=== PATIENT | female | born 1975 | race Hispanic/Latino ===

== ENCOUNTER 2017-09-17 14:25 | Emergency (ER) | payer MEDICAID, OTHER ==
[2017-09-17 14:39] VITALS: RESP 18; O2SAT 95; BMI 35.7
--- NOTE | 2017-09-17 14:48 | ED PDOC ---
Arrival/HPI - General Chief Complaint: Dental Pain Time Seen by Provider: 09/17/17 14:39 Historian: Patient - History of Present Illness Narrative History of Present Illness (Text): 09/17/17 14:44 42yo female with pmhx of depression and opiod abuse who present with complaint of toothache since this morning. States her dentist recently stopped taking her insurance. She uses dentures. She denies trauma, fever, chills, any other complaint. she did not take any analgesic, per patient. Past Medical History - Provider Review Nursing Documentation Reviewed: Yes - Infectious Disease Hx of Infectious Diseases: None - Tetanus Immunization Tetanus Immunization: Up to Date - Past Medical History Past Medical History: No Previous - Cardiac Hx Hypertension: Yes - Pulmonary Hx Bronchitis: Yes - Neurological HX Cerebrovascular Accident: No Hx Seizures: No - HEENT Hx HEENT Disorder: No - Renal Hx Renal Disorder: No - Endocrine/Metabolic Hx Endocrine Disorders: No - Hematological/Oncological Hx Cancer: No - Integumentary Hx Dermatological Disorder: No - Musculoskeletal/Rheumatological Hx Falls: No - Gastrointestinal Hx Gastrointestinal Disorders: No - Genitourinary/Gynecological Hx Sexually Transmitted Diseases: No - Psychiatric Hx Anxiety: Yes Hx Depression: Yes Hx Substance Use: Yes - Surgical History Hx Section: Yes (x3) Hx Tubal Ligation: Yes Other/Comment: Endometriosis ablation - Anesthesia Hx Anesthesia: Yes Hx Anesthesia Reactions: No Hx Malignant Hyperthermia: No - Suicidal Assessment Feels Threatened In Home Enviroment: No Family/Social History - Physician Review Nursing Documentation Reviewed: Yes Family/Social History: Unknown Family HX Smoking Status: Light Smoker < 10 Cigarettes Daily Hx Alcohol Use: No Hx Substance Use: Yes Substance used: heroin Hx Substance Use Treatment: No Allergies/Home Meds Allergies/Adverse Reactions: Allergies codeine Allergy (Verified 09/17/17 14:29) RASH Review of Systems - Physician Review All systems were reviewed & negative as marked: Yes - Review of Systems Constitutional: Normal Eyes: Normal ENT: Other (Toothache) Respiratory: Normal Cardiovascular: Normal Gastrointestinal: Normal Genitourinary Female: Normal Musculoskeletal: Normal Skin: Normal Neurological: Normal Endocrine: Normal Hemo/Lymphatic: Normal Psychiatric: Normal Physical Exam Vital Signs Reviewed: Yes Vital Signs Temp Pulse Resp BP Pulse Ox 09/17/17 14:30 98.4 F 89 18 139/89 95 Temperature: Afebrile Blood Pressure: Normal Pulse: Regular Respiratory Rate: Normal Appearance: Positive for: Well-Appearing, Non-Toxic, Comfortable Pain Distress: None Mental Status: Positive for: Alert and Oriented X 3 - Systems Exam Head: Present: Atraumatic, Normocephalic Pupils: Present: PERRL Extroacular Muscles: Present: EOMI Conjunctiva: Present: Normal Mouth: Present: Moist Mucous Membranes. No: Normal Teeth (Poor denitition in general. Many missing tooth. The only 2 remaining upper tooth right latearl and left lateral incissor appear infected with gingivitis. No gum swelling.) Neck: Present: Normal Range of Motion Respiratory/Chest: Present: Clear to Auscultation, Good Air Exchange. No: Respiratory Distress, Accessory Muscle Use Cardiovascular: Present: Regular Rate and Rhythm, Normal S1, S2. No: Murmurs Abdomen: No: Tenderness, Distention, Peritoneal Signs Back: Present: Normal Inspection Upper Extremity: Present: Normal Inspection. No: Cyanosis, Edema Lower Extremity: Present: Normal Inspection. No: Edema Neurological: Present: GCS=15, CN II-XII Intact, Speech Normal Skin: Present: Warm, Dry, Normal Color. No: Rashes Psychiatric: Present: Alert, Oriented x 3, Normal Insight, Normal Concentration Disposition/Present on Arrival - Present on Arrival Any Indicators Present on Arrival: No History of DVT/PE: No History of Uncontrolled Diabetes: No Urinary Catheter: No History of Decub. Ulcer: No History Surgical Site Infection Following: None - Disposition Have Diagnosis and Disposition been Completed?: Yes Diagnosis: Dental caries Disposition: HOME/ ROUTINE Disposition Time: 14:55 Patient Plan: Discharge Condition: STABLE Discharge Instructions (ExitCare): Dental Pain Additional Instructions: Follow up with a Dentist Return to ED for any new symptoms Prescriptions: Amoxicillin [Amoxil 500 mg Cap] 500 mg PO TID #21 cap Ibuprofen [Motrin Tab] 600 mg PO Q6 #20 tab Referrals: [facility] [place]] - Follow up with primary
[2017-09-17 16:37] VITALS: BP 132/72; PULSE 72; TEMP 98.3
== END 2017-09-17 15:45 | disposition home or self-care (01) ==
LOC: ED 14:25
DX: K02.9 Dental caries, unspecified (principal)
CPT/HCPCS: 96372; 99283; J1885

== ENCOUNTER 2018-01-02 02:17 | Emergency (ER) | payer MEDICAID ==
[2018-01-02 02:18] VITALS: BMI 35.7
[2018-01-02 02:33] VITALS: RESP 18; TEMP 98.2
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
[2018-01-02 05:30] VITALS: BP 136/82; PULSE 69; O2SAT 99
--- NOTE | 2018-01-02 09:21 | CT ---
Date of service: 01/02/2018 PROCEDURE: CT HEAD WITHOUT CONTRAST. HISTORY: injury COMPARISON: None available. TECHNIQUE: Axial computed tomography images were obtained through the head/brain without intravenous contrast. Radiation dose: Total exam DLP = 846 mGy-cm. This CT exam was performed using one or more of the following dose reduction techniques: Automated exposure control, adjustment of the mA and/or kV according to patient size, and/or use of iterative reconstruction technique. FINDINGS: HEMORRHAGE: No intracranial hemorrhage. BRAIN: No mass effect or edema. No atrophy or chronic microvascular ischemic changes. VENTRICLES: Unremarkable. No hydrocephalus. CALVARIUM: Unremarkable. PARANASAL SINUSES: Unremarkable as visualized. No significant inflammatory changes. MASTOID AIR CELLS: Unremarkable as visualized. No inflammatory changes. OTHER FINDINGS: The report concurs with the preliminary [facility] report IMPRESSION: No acute findings
== END 2018-01-02 05:29 | disposition home or self-care (01) ==
LOC: ED 02:17
DX: S09.90XA Unspecified injury of head, initial encounter (principal); Y08.89XA Assault by other specified means, initial encounter; Y92.9 Unspecified place or not applicable

== ENCOUNTER 2018-01-06 10:28 | Inpatient (IN) | payer MEDICAID, OTHER ==
[2018-01-06 10:42] VITALS: BMI 33.3
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
[2018-01-06 12:15] LABS: ACETAMINOPHEN < 10.0 ug/ml (10.0-20.0); SALICYLATE < 1 mg/dL (2.0-20.0)
[2018-01-06 12:17] LABS: URINE APPEARANCE CLOUDY (CLEAR); URINE BILIRUBIN SMALL (NEGATIVE); URINE COLOR YELLOW (YELLOW); URINE GLUCOSE (UA) NEGATIVE (NEGATIVE)
[2018-01-06 12:18] LABS: URINE BLOOD NEGATIVE (NEGATIVE); URINE LEUKOCYTE ESTERASE TRACE Leu/uL (NEGATIVE); URINE PROTEIN 30 mg/dL (<30 mg/dL)
[2018-01-06 12:29] LABS: ALB/GLOB RATIO 1.2 (1.1-1.8); ALT/SGPT 28 U/L (7-56); AST/SGOT 35 U/L (14-36); BLOOD UREA NITROGEN 9 mg/dL (7-21); CALCIUM 9.1 mg/dL (8.4-10.5); GFR NON-AFRICAN AMERICAN > 60
[2018-01-06] MEDS ORDERED: Potassium Chloride 20 mEq ER Tab PO STA (12:34)
[2018-01-06 12:37] LABS: PHENCYCLIDINE, UR NEGATIVE (NEGATIVE); URINE BACTERIA MOD (NEG); URINE RBC 0 - 2 /hpf (0-2)
[2018-01-06 12:40] LABS: BASO # 0.02 K/mm3 (0.0-2.0); BASO % 0.3 % (0.0-3.0); EOS % 0.3 % (1.5-5.0); GRAN # 6.14 (1.4-6.5); GRAN % 80.4 % (50.0-68.0); HEMOGLOBIN 13.9 g/dL (12.0-16.0); LYMPH # 1.1 (1.2-3.4); LYMPH % 14.8 % (22.0-35.0); MEAN CELL VOLUME 85.8 fl (80.0-105.0); MEAN CORPUSCULAR HEMOGLOBIN 30.3 pg (25.0-35.0); MEAN CORPUSCULAR HGB CONC 35.3 g/dl (31.0-37.0); MEAN PLATELET VOLUME 10.3 fl (7.0-11.0); MONO # 0.3 (0.1-0.6); MONO % 4.2 % (1.0-6.0); RBC 4.59 10^6/uL (3.5-6.1); RED CELL DISTRIBUTION WIDTH 13.1 % (11.5-14.5); WHITE BLOOD COUNT 7.6 10^3/ul (4.5-11.0)
[2018-01-06 12:40] LABS: BARBITURATES, UR NEGATIVE (NEGATIVE); BENZODIAZEPINES, UR POSITIVE (NEGATIVE); OPIATES, UR POSITIVE (NEGATIVE)
[2018-01-06 13:00] LABS: TROPONIN I < 0.01 ng/mL
[2018-01-06 13:04] LABS: CK-MB 3.7 ng/mL (0.0-3.6)
[2018-01-06] MEDS ORDERED: cefTRIAXone 1 gm 1 GM/100 ML BAG IVPB STA (13:08)
--- NOTE | 2018-01-06 13:20 | RAD ---
Date of service: 01/06/2018 HISTORY: pes COMPARISON: No prior. FINDINGS: LUNGS: No active pulmonary disease. PLEURA: No significant pleural effusion identified, no pneumothorax apparent. CARDIOVASCULAR: Normal. OSSEOUS STRUCTURES: No significant abnormalities. VISUALIZED UPPER ABDOMEN: Normal. OTHER FINDINGS: None. IMPRESSION: No active disease.
[2018-01-06] MEDS ORDERED: Albuterol-Ipratrop 3 mg / 0.5 (3 ml) UD IH SCH (13:30)
--- NOTE | 2018-01-06 13:43 | CP.PCM.HP ---
History of Present Illness - History of Present Illness History of Present Illness: PGY-2 H&P medicine note for Dr Feldman Mrs Scott is a 42 year old female with a PMHx of asthma, bipolar disorder, opioid use disorder on methadone, tobacco abuse, who presents to our ED with suicidal ideations and found to have a potassium of 2.4. Her recent stressors include being kicked out of her home by her significant other, who also recently enacted a restraining order against her. She's been living in a homeless care home and states that also a big stressor in her life. She's on a methadone program which has been tapered down to 5mg daily - she states this is not covering her withdrawal symptoms which is forcing her to use heroin (via snorting) - her last heroin use was this morning at 8am. PMHx: asthma, bipolar disorder, opioid use disorder on methadone, tobacco abuse PSHx: Home Meds: hydrochlorothiazide 25mg po qd, amlodipine 10mg po qd, seroquel 200mg po hs, divalproex 250mg po bid, citalopram 10mg po hs Allergies: Codeine - rash FamHx: mother - heart problems SocialHx: 20 pack year tobacco hx - current smoker, denies alcohol, 5-10 bags of heroin use via snort for past 4 years on methadone program, marijuana use, has 3 kids who live with boyfriends mother, [facility] Present on Admission - Present on Admission Any Indicators Present on Admission: No Review of Systems - Constitutional Constitutional: absent: Chills, Fever - EENT Eyes: absent: Blurred Vision Nose/Mouth/Throat: absent: Epistaxis, Nasal Congestion - Cardiovascular Cardiovascular: absent: Chest Pain - Respiratory Respiratory: absent: Cough, Hemoptysis - Gastrointestinal Gastrointestinal: absent: Abdominal Pain - Genitourinary Genitourinary: absent: Dysuria, Flank Pain, Hematuria, Pyuria, Urinary Frequency, Urinary Hesitance, Freq UTI - Musculoskeletal Musculoskeletal: Back Pain - Integumentary Integumentary: absent: Bleeding Lesions - Hematologic/Lymphatic Hematologic: absent: Easy Bleeding Past Patient History - Infectious Disease Hx of Infectious Diseases: None - Tetanus Immunizations Tetanus Immunization: Up to Date - Past Medical History & Family History Past Medical History?: Yes - Past Social History Smoking Status: Light Smoker < 10 Cigarettes Daily - CARDIAC Hx Hypertension: Yes - PULMONARY Hx Bronchitis: Yes - NEUROLOGICAL Hx Seizures: No - HEENT Hx HEENT Problems: No - RENAL Hx Chronic Kidney Disease: No - ENDOCRINE/METABOLIC Hx Endocrine Disorders: No - HEMATOLOGICAL/ONCOLOGICAL Hx Cancer: No - INTEGUMENTARY Hx Dermatological Problems: No - MUSCULOSKELETAL/RHEUMATOLOGICAL Hx Falls: No - GASTROINTESTINAL Hx Gastrointestinal Disorders: No - GENITOURINARY/GYNECOLOGICAL Hx Sexually Transmitted Disorders: No - PSYCHIATRIC Hx Anxiety: Yes Hx Depression: Yes Hx Substance Use: Yes - SURGICAL HISTORY Hx Section: Yes (x3) Hx Tubal Ligation: Yes Other/Comment: Endometriosis ablation - ANESTHESIA Hx Anesthesia: Yes Hx Anesthesia Reactions: No Hx Malignant Hyperthermia: No Meds Allergies/Adverse Reactions: Allergies Allergy/AdvReac Type Severity Reaction Status Date / Time codeine Allergy RASH Verified 09/17/17 14:29 Physical Exam - Constitutional Appears: In Acute Distress, Other (anxious) - Head Exam Head Exam: ATRAUMATIC, NORMAL INSPECTION - Eye Exam Eye Exam: EOMI, Normal appearance, PERRL - ENT Exam ENT Exam: Mucous Membranes Moist - Respiratory Exam Respiratory Exam: Clear to Auscultation Bilateral, NORMAL BREATHING PATTERN. absent: Rales, Rhonchi, Wheezes - Cardiovascular Exam Cardiovascular Exam: REGULAR RHYTHM, +S1, +S2. absent: Tachycardia, JVD, Systolic Murmur - GI/Abdominal Exam GI & Abdominal Exam: Normal Bowel Sounds, Soft. absent: Distended, Firm, Guarding, Hernia, Tenderness - Extremities Exam Extremities exam: Positive for: calf tenderness, normal capillary refill, normal inspection, tenderness, pedal pulses present. Negative for: joint swelling, pedal edema - Back Exam Back exam: NORMAL INSPECTION - Neurological Exam Neurological exam: Alert, CN II-XII Intact, Oriented x3 - Psychiatric Exam Psychiatric exam: Anxious - Skin Skin Exam: Intact, Normal Color, Warm Results - Vital Signs Recent Vital Signs: Last Vital Signs Temp 98.3 F 01/06/18 10:41 Pulse 90 01/06/18 10:41 Resp 18 01/06/18 10:41 BP 147/89 01/06/18 10:41 Pulse Ox 97 01/06/18 10:41 - Labs Result Diagrams: 01/06/18 11:56 01/06/18 11:56 Labs: Laboratory Results - last 24 hr 1001/06/18 01/06/18 11:56 11:56 11:56 WBC 7.6 RBC 4.59 Hgb 13.9 Hct 39.4 MCV 85.8 MCH 30.3 MCHC 35.3 RDW 13.1 Plt Count 190 MPV 10.3 Gran % 80.4 H Lymph % (Auto) 14.8 L [place] % (Auto) 4.2 Eos % (Auto) 0.3 L Baso % (Auto) 0.3 Gran # 6.14 Lymph # (Auto) 1.1 L [place] # (Auto) 0.3 Eos # (Auto) 0.0 Baso # (Auto) 0.02 Sodium 140 Potassium 2.4 L* D Chloride 101 Carbon Dioxide 30 Anion Gap 11 BUN 9 Creatinine 0.6 L Est GFR ( Amer) > 60 Est GFR (Non-Af Amer) > 60 Random Glucose 168 H Calcium 9.1 Magnesium Total Bilirubin 0.5 AST 35 ALT 28 Alkaline Phosphatase 94 Lactate Dehydrogenase Total Creatine Kinase CK-MB (CK-2) CK-MB (CK-2) % Troponin I Total Protein 7.3 Albumin 4.0 Globulin 3.2 Albumin/Globulin Ratio 1.2 Urine Color Urine Appearance Urine pH Ur Specific [place] Urine Protein Urine Glucose (UA) Urine Ketones Urine Blood Urine Nitrate Urine Bilirubin Urine Urobilinogen Ur Leukocyte Esterase Urine RBC Urine WBC Ur Epithelial Cells Urine Bacteria Salicylates < 1 L Urine Opiates Screen Urine Methadone Screen Acetaminophen < 10.0 L Ur Barbiturates Screen Ur Phencyclidine Scrn Ur Amphetamines Screen U Benzodiazepines Scrn U Oth Cocaine Metabols U Cannabinoids Screen Alcohol, Quantitative 01/06/18 01/06/18 01/06/18 11:56 12:00 12:14 WBC RBC Hgb Hct MCV MCH MCHC RDW Plt Count MPV Gran % Lymph % (Auto) [place] % (Auto) Eos % (Auto) Baso % (Auto) Gran # Lymph # (Auto) [place] # (Auto) Eos # (Auto) Baso # (Auto) Sodium Potassium Chloride Carbon Dioxide Anion Gap BUN Creatinine Est GFR ( Amer) Est GFR (Non-Af Amer) Random Glucose Calcium Magnesium 2.0 Total Bilirubin AST ALT Alkaline Phosphatase Lactate Dehydrogenase 439 Total Creatine Kinase 254 H CK-MB (CK-2) 3.7 H CK-MB (CK-2) % Cancelled Troponin I < 0.01 Total Protein Albumin Globulin Albumin/Globulin Ratio Urine Color Yellow Urine Appearance Cloudy Urine pH 6.0 Ur Specific [place] 1.025 Urine Protein 30 H Urine Glucose (UA) Negative Urine Ketones Trace H Urine Blood Negative Urine Nitrate Positive H Urine Bilirubin Small H Urine Urobilinogen 1.0 H Ur Leukocyte Esterase Trace H Urine RBC 0 - 2 Urine WBC 1 - 3 Ur Epithelial Cells 10 - 12 Urine Bacteria Mod Salicylates Urine Opiates Screen Urine Methadone Screen Acetaminophen Ur Barbiturates Screen Ur Phencyclidine Scrn Ur Amphetamines Screen U Benzodiazepines Scrn U Oth Cocaine Metabols U Cannabinoids Screen Alcohol, Quantitative < 10 01/06/18 12:14 WBC RBC Hgb Hct MCV MCH MCHC RDW Plt Count MPV Gran % Lymph % (Auto) [place] % (Auto) Eos % (Auto) Baso % (Auto) Gran # Lymph # (Auto) [place] # (Auto) Eos # (Auto) Baso # (Auto) Sodium Potassium Chloride Carbon Dioxide Anion Gap BUN Creatinine Est GFR ( Amer) Est GFR (Non-Af Amer) Random Glucose Calcium Magnesium Total Bilirubin AST ALT Alkaline Phosphatase Lactate Dehydrogenase Total Creatine Kinase CK-MB (CK-2) CK-MB (CK-2) % Troponin I Total Protein Albumin Globulin Albumin/Globulin Ratio Urine Color Urine Appearance Urine pH Ur Specific [place] Urine Protein Urine Glucose (UA) Urine Ketones Urine Blood Urine Nitrate Urine Bilirubin Urine Urobilinogen Ur Leukocyte Esterase Urine RBC Urine WBC Ur Epithelial Cells Urine Bacteria Salicylates Urine Opiates Screen Positive H Urine Methadone Screen Positive H Acetaminophen Ur Barbiturates Screen Negative Ur Phencyclidine Scrn Negative Ur Amphetamines Screen Negative U Benzodiazepines Scrn Positive H U Oth Cocaine Metabols Negative U Cannabinoids Screen Positive H Alcohol, Quantitative Assessment & Plan - Assessment and Plan (Free Text) Plan: Mrs Scott is a 42 year old female with a PMHx of asthma, bipolar disorder, opioid use disorder on methadone, tobacco abuse, who presents to our ED with suicidal ideations and found to have a potassium of 2.4: Hypokalemia -potassium 2.4 on admission -likely due to poor unbalanced diet as patient living in homeless care home; denied vomiting/diarrhea -40meq po given in ED, plan on giving 20meq via IV and another 40meq po x2 Suicidal Ideations -recent stressors + medications non-compliance (patient stated she hasn't taken her citalopram for the last 1 month) -consult psychiatry, Dr Alfaro -1:1 sitter -xanax 0.25mg po tid as patient very anxious on exam Bipolar Disorder Depressed Severe w/o Psychotic Features -patient stated she hasn't taken her citalopram for the last 1 month -continue home quetiapine 10mg po qd -continue home divalproex 250mg po bid -continue home citalopram 10mg po hs Opioid Use Disorder, Severe, Dependence -consult psychiatry, Dr Alfaro -self reported use of heroin 10 bags/day - last use this morning -[facility]) -continue methadone 5mg po bid and taper to po qd -start medications for potential opioid withdrawal symptoms - zofran for nausea, ibuprofen for pain, clonidine for withdrawal symptoms Hx of Asthma -duoneb 3ml inh q6h prn for dyspnea HTN -BP well controlled -hold home hydrochlorothiazide 25mg po qd as has side effect of hypokalemia -hold home amlodipine 10mg po qd as this can peripheral edema (patient complaining of increased LE swelling) -start lisinopril 10mg po qd Elevated Glucose -glucose 168 on admission -F/U HgbA1c UTI -UA positive for nitrates and leukocyte esterase however patient is asymptomatic -Rocephin 1g ivpb given in ED -F/U urine Cx -No Abx indicated at this time Tobacco Abuse -consult psychiatry, Dr Alfaro -nicotine patch 14mg td qd LE Pain -likely 2/2 heroin withdrawal -venous doppler, f/u PPX -SCDs contraindicated 2/2 to LE pain -lovenox 40mg sc qd -heart healthy diet
[2018-01-06] MEDS ORDERED: Albuterol-Ipratrop 3 mg / 0.5 (3 ml) UD IH PRN (13:48)
[2018-01-06] MEDS ORDERED: Potassium Chloride 20 mEq ER Tab PO ONE ×2 (15:00→18:00)
--- NOTE | 2018-01-06 16:20 | CARD ---
APPROVED REPORT Date of service: 01/06/2018 EKG Measurement Heart [id number] <Conclusion> Normal sinus rhythm Septal infarct, age undetermined Inferior infarct, age undetermined Abnormal ECG
[2018-01-06] MEDS: Divalproex 250 mg DR (BID formulation) PO SCH (21:33)
[2018-01-07 06:30] LABS: BASO # 0.03 K/mm3 (0.0-2.0); BASO % 0.6 % (0.0-3.0); EOS # 0.2 (0.0-0.7); EOS % 3.9 % (1.5-5.0); GRAN # 2.52 (1.4-6.5); LYMPH % 37.3 % (22.0-35.0); MEAN CELL VOLUME 88.3 fl (80.0-105.0); MEAN CORPUSCULAR HEMOGLOBIN 29.7 pg (25.0-35.0); MEAN CORPUSCULAR HGB CONC 33.7 g/dl (31.0-37.0); MEAN PLATELET VOLUME 10.5 fl (7.0-11.0); MONO # 0.6 (0.1-0.6); MONO % 11.2 % (1.0-6.0); RBC 4.71 10^6/uL (3.5-6.1); RED CELL DISTRIBUTION WIDTH 13.4 % (11.5-14.5); WHITE BLOOD COUNT 5.4 10^3/ul (4.5-11.0)
[2018-01-07 07:23] LABS: ALB/GLOB RATIO 1.1 (1.1-1.8); ALBUMIN 3.6 g/dL (3.0-4.8); ALT/SGPT 21 U/L (7-56); AST/SGOT 28 U/L (14-36); BLOOD UREA NITROGEN 10 mg/dL (7-21); CALCIUM 8.8 mg/dL (8.4-10.5); GFR NON-AFRICAN AMERICAN > 60
[2018-01-07] MEDS: Multivitamin With Minerals Tab PO SCH (09:15)
[2018-01-07] MEDS: Divalproex 250 mg DR (BID formulation) PO SCH ×2 (09:15→21:22)
[2018-01-07] MEDS: Enoxaparin 40 mg Syringe SC SCH (09:17)
[2018-01-07] MEDS ORDERED: Potassium Chloride 20 mEq ER Tab PO ONE (10:47)
--- NOTE | 2018-01-07 15:12 | US ---
HISTORY: Leg pain and swelling. Evaluate for DVT PHYSICIAN(S): Nader Scott MD. TECHNIQUE: Duplex sonography and color-flow Doppler with graded compression were used to evaluate the deep venous systems of both lower extremities. FINDINGS: The visualized deep venous systems of both lower extremities are sonographically normal and compressible. Normal wave forms and augmentation are seen. There is no sonographic evidence for deep venous thrombosis in the visualized segments of both lower extremities. IMPRESSION: No sonographic evidence for deep venous thrombosis in the visualized segments of both lower extremities.
--- NOTE | 2018-01-08 05:49 | CP.PCM.PN ---
<Cristina Malcolm - Last Filed: 01/08/18 16:29> Subjective - Date & Time of Evaluation Date of Evaluation: 01/07/18 Time of Evaluation: 10:00 - Subjective Subjective: HISTORY & PHYSICAL NOTE FOR DR. LEIGHTON Malcolm D.O PGY-1 Pt seen and examined at bedside. No acute complains. No nursing events over night. Denies suicidal ideation, homicidal ideations, thoughts to harm others. Denies fevers, chills, headache, dizziness, nausea, vomiting, chest pain, palpitations, SOB, constipation, diarrhea, dysuria. Objective - Vital Signs/Intake and Output Vital Signs (last 24 hours): Temp Pulse Resp BP Pulse Ox 98.2 F 65 20 111/66 98 01/08/18 00:01 01/08/18 02:00 01/08/18 00:01 01/08/18 00:01 01/08/18 00:01 Intake and Output: 01/07/18 01/08/18 18:59 06:59 Intake Total 240 Output Total 0 Balance 240 - Medications Medications: Current Medications Albuterol/Ipratropium (Duoneb 3 Mg/0.5 Mg (3 Ml) Ud) 3 ml IH Q6H PRN PRN Reason: Shortness of Breath Last Admin: 01/06/18 14:13 Dose: 3 ml Alprazolam (Xanax) 0.25 mg PO TID SHERRY; Protocol Stop: 01/13/18 18:01 Last Admin: 01/07/18 18:41 Dose: 0.25 mg Citalopram Hydrobromide (Celexa) 10 mg PO HS COUNT [facility]CLUDES [facility] Last Admin: 01/07/18 21:23 Dose: 10 mg Clonidine HCl (Catapres) 0.1 mg PO Q4H PRN PRN Reason: Symptoms of Opioid Withdrawal Cyanocobalamin (Vitamin B12 100 Mcg Tab) 100 mcg PO DAILY COUNT INCLUDES [facility] Last Admin: 01/07/18 09:16 Dose: 100 mcg Divalproex Sodium (Depakote Dr (*Bid*)) 250 mg PO Q12 [facility]; Protocol Last Admin: 01/07/18 21:22 Dose: 250 mg Enoxaparin Sodium (Lovenox) 40 mg SC DAILY [facility]; Protocol Last Admin: 01/07/18 09:17 Dose: 40 mg Folic Acid (Folic Acid) 1 mg PO DAILY COUNT [facility]CLUDES [facility] Last Admin: 01/07/18 09:16 Dose: 1 mg Ibuprofen (Motrin Tab) 200 mg PO Q8H PRN PRN Reason: Pain, severe (8-10) Lisinopril (Zestril) 10 mg PO DAILY COUNT [facility]CLUDES [facility] Last Admin: 01/07/18 09:16 Dose: 10 mg Methadone HCl (Methadone) 5 mg PO BID COUNT [facility]CLUDES [facility] Last Admin: 01/07/18 18:40 Dose: 5 mg Multivitamins/Minerals (Therapeutic-M Tab) 1 tab PO 0800 COUNT [facility]CLUDES [facility] Last Admin: 01/07/18 09:15 Dose: 1 tab Nicotine (Nicoderm Cq) 1 patch TD DAILY COUNT [facility]CLUDES [facility] Last Admin: 01/07/18 09:17 Dose: 1 patch Ondansetron HCl (Zofran Inj) 4 mg IVP Q6H PRN PRN Reason: Nausea/Vomiting Quetiapine Fumarate (Seroquel) 200 mg PO HS PRN PRN Reason: Insomnia Last Admin: 01/07/18 21:31 Dose: 200 mg - Labs Labs: 01/07/18 06:10 01/07/18 06:10 - Constitutional Appears: Well, Non-toxic, No Acute Distress - Head Exam Head Exam: NORMAL INSPECTION, NORMOCEPHALIC - Eye Exam Eye Exam: EOMI, Normal appearance - ENT Exam ENT Exam: Mucous Membranes Moist, Normal Exam - Neck Exam Neck Exam: Normal Inspection - Respiratory Exam Respiratory Exam: Clear to Ausculation Bilateral, NORMAL BREATHING PATTERN - Cardiovascular Exam Cardiovascular Exam: REGULAR RHYTHM, +S1, +S2 - GI/Abdominal Exam GI & Abdominal Exam: Soft, Normal Bowel Sounds - Extremities Exam Extremities Exam: Normal Inspection. absent: Calf Tenderness - Back Exam Back Exam: NORMAL INSPECTION - Neurological Exam Neurological Exam: Alert, Awake, Oriented x3 - Psychiatric Exam Psychiatric exam: Normal Affect, Normal Mood - Skin Skin Exam: Dry, Intact, Warm Assessment and Plan - Assessment and Plan (Free Text) Assessment: Mrs Scott is a 42 year old female with a PMHx of asthma, bipolar disorder, opioid use disorder on methadone, tobacco abuse, who presents to our ED with whiting icidal ideations and found to have a potassium of 2.4. Pt potassium repleted with po KCl. Psychiatry consulted for recommendations Plan: Hypokalemia -potassium 2.4 on admission -likely due to poor unbalanced diet as patient living in homeless senior living; denied vomiting/diarrhea -40meq po given in ED. Give 20meq po Suicidal Ideations -recent stressors + medications non-compliance (patient stated she hasn't taken her citalopram for the last 1 month) -consult psychiatry, Dr Alfaro -1:1 sitter -xanax 0.25mg po tid as patient very anxious on exam Bipolar Disorder Depressed Severe w/o Psychotic Features -patient stated she hasn't taken her citalopram for the last 1 month -continue home quetiapine 10mg po qd -continue home divalproex 250mg po bid -continue home citalopram 10mg po hs Opioid Use Disorder, Severe, Dependence -consult psychiatry, Dr Alfaro -self reported use of heroin 10 bags/day - last use this morning -[facility]) -continue methadone 5mg po bid and taper to po qd -start medications for potential opioid withdrawal symptoms -start zofran for nausea, ibuprofen for pain, clonidine for withdrawal symptoms Hx of Asthma -start duoneb 3ml inh q6h prn for dyspnea HTN -BP well controlled -hold home hydrochlorothiazide 25mg po qd as has side effect of hypokalemia -hold home amlodipine 10mg po qd as this can peripheral edema (patient complaining of increased LE swelling) -start lisinopril 10mg po qd Elevated Glucose -glucose 168 on admission -F/U HgbA1c UTI -UA positive for nitrates and leukocyte esterase however patient is asymptomatic -Rocephin 1g ivpb given in ED -N-o Abx indicated at this time Tobacco Abuse -consult psychiatry, Dr Alfaro -nicotine patch 14mg td qd LE Pain -likely 2/2 heroin withdrawal -venous doppler, f/u PPX -SCDs contraindicated 2/2 to LE pain -lovenox 40mg sc qd -heart healthy diet <Lennie Valladares R - Last Filed: 01/09/18 17:03> Objective - Vital Signs/Intake and Output Vital Signs (last 24 hours): Temp Pulse Resp BP Pulse Ox 98.2 F 61 18 135/91 H 97 01/08/18 18:15 01/08/18 18:15 01/08/18 18:15 01/08/18 18:15 01/08/18 06:00 - Labs Labs: 01/08/18 06:00 01/08/18 06:00 Attending/Attestation - Attestation I have personally seen and examined this patient.: Yes I have fully participated in the care of the patient.: Yes I have reviewed all pertinent clinical information, including history, physical exam and plan: Yes Notes (Text): Patient seen and examined by me with resident at 10:40 AM on 01/07/18 with resident. Case including discharge plan discussed with resident. Agree with above with following additions/corrections. Patient is a 42-year-old female with past medical history significant for asthma, bipolar disorder, opioid abuse on methadone, and tobacco use the presented to the emergency room with suicidal ideations. Patient states she is feeling okay. Patient states she feels like she is withdrawing from heroin. Complains of body aches and diarrhea. She denies any headaches, dizziness, lightheadedness, or change in vision. No chest pain or palpitations. No shortness of breath. No nausea, vomiting, or abdominal pain. No fevers or chills. No dysuria. Physical exam: Gen: Awake and alert sitting and lying in bed in no acute distress HEENT: Normocephalic, atraumatic. Extraocular muscles intact, pupils equal reactive. No scleral icterus. Oropharynx is pink and moist. No pharyngeal erythema or exudate appreciated. Neck is supple. Cardiovascular: Normal rhythm. Normal S1, S2. No murmurs, rubs, or gallops appreciated Pulmonary: Normal respiratory effort. No rhonchi, rales, or wheezing appreciated. Gastrointestinal: Soft, nontender. Nondistended. Positive bowel sounds all 4 quadrants, no guarding. Musculoskeletal: Normal range of motion all extremities. No edema appreciated. No calf tenderness. Central nervous system: AAO x 3. CN2-12 grossly intact. Dermatologic: Skin warm and dry. Assessment and plan: Patient is a 42-year-old female with past medical history significant for asthma, bipolar disorder, opioid abuse on methadone, and tobacco use the presented to the emergency room with suicidal ideations. 1. Hypokalemia. Improved. Continue to replace potassium as needed. Home hydrochlorothiazide held. Continue to monitor. . 2. Suicidal ideations. Patient is on one-to-one. Psychiatrist consulted, pending recommendations. 3. Bipolar disorder. Anxiety. Depression. Continue Xanax 3 times a day. Continue Depakote every 12 hours. Continue Celexa. Continue Seroquel. Psychiatry consulted, pending recommendations. 4. Opioid abuse. Patient she was taking methadone. Psychiatrist consulted, pending recommendations. 5. Abnormal urinalysis. Patient asymptomatic. No antibiotic treatment indicated. Urine culture with no growth. 6. Left lower extremity pain. Venous Doppler negative for DVT. Continue to monitor. 7. Tobacco abuse. Patient counseled at length on cessation. Nicotine patch. 8. Elevated glucose. Resolved. Hemoglobin A1c 5.6. 9. History of asthma. Not in any acute exacerbation. Continue nebulizer frances tments as needed. Case was discussed in detail with the patient regarding current diagnosis and treatment plan.
--- NOTE | 2018-01-08 05:52 | CP.PCM.PN ---
Subjective - Date & Time of Evaluation Date of Evaluation: 01/08/18 Time of Evaluation: 05:52 - Subjective Subjective: HISTORY & PHYSICAL PROGRESS NOTE FOR DR. LEIGHTON Malcolm D.O. PGY-1 Objective - Vital Signs/Intake and Output Vital Signs (last 24 hours): Temp Pulse Resp BP Pulse Ox 98.2 F 65 20 111/66 98 01/08/18 00:01 01/08/18 02:00 01/08/18 00:01 01/08/18 00:01 01/08/18 00:01 Intake and Output: 01/07/18 01/08/18 18:59 06:59 Intake Total 240 Output Total 0 Balance 240 - Medications Medications: Current Medications Albuterol/Ipratropium (Duoneb 3 Mg/0.5 Mg (3 Ml) Ud) 3 ml IH Q6H PRN PRN Reason: Shortness of Breath Last Admin: 01/06/18 14:13 Dose: 3 ml Alprazolam (Xanax) 0.25 mg PO TID [facility]; Protocol Stop: 01/13/18 18:01 Last Admin: 01/07/18 18:41 Dose: 0.25 mg Citalopram Hydrobromide (Celexa) 10 mg PO HS [facility] Last Admin: 01/07/18 21:23 Dose: 10 mg Clonidine HCl (Catapres) 0.1 mg PO Q4H PRN PRN Reason: Symptoms of Opioid Withdrawal Cyanocobalamin (Vitamin B12 100 Mcg Tab) 100 mcg PO DAILY [facility] Last Admin: 01/07/18 09:16 Dose: 100 mcg Divalproex Sodium (Depakote Dr (*Bid*)) 250 mg PO Q12 [facility]; Protocol Last Admin: 01/07/18 21:22 Dose: 250 mg Enoxaparin Sodium (Lovenox) 40 mg SC DAILY [facility]; Protocol Last Admin: 01/07/18 09:17 Dose: 40 mg Folic Acid (Folic Acid) 1 mg PO DAILY [facility] Last Admin: 01/07/18 09:16 Dose: 1 mg Ibuprofen (Motrin Tab) 200 mg PO Q8H PRN PRN Reason: Pain, severe (8-10) Lisinopril (Zestril) 10 mg PO DAILY [facility] Last Admin: 01/07/18 09:16 Dose: 10 mg Methadone HCl (Methadone) 5 mg PO BID [facility] Last Admin: 01/07/18 18:40 Dose: 5 mg Multivitamins/Minerals (Therapeutic-M Tab) 1 tab PO 0800 [facility] Last Admin: 01/07/18 09:15 Dose: 1 tab Nicotine (Nicoderm Cq) 1 patch TD DAILY [facility] Last Admin: 01/07/18 09:17 Dose: 1 patch Ondansetron HCl (Zofran Inj) 4 mg IVP Q6H PRN PRN Reason: Nausea/Vomiting Quetiapine Fumarate (Seroquel) 200 mg PO HS PRN PRN Reason: Insomnia Last Admin: 01/07/18 21:31 Dose: 200 mg - Labs Labs: 01/07/18 06:10 01/07/18 06:10
[2018-01-08] MEDS ORDERED: Potassium Chloride 20 mEq ER Tab PO STA (05:53)
[2018-01-08 06:15] VITALS: O2SAT 97
[2018-01-08 07:09] LABS: ALB/GLOB RATIO 1.1 (1.1-1.8); ALBUMIN 3.4 g/dL (3.0-4.8); ALT/SGPT 22 U/L (7-56); AST/SGOT 24 U/L (14-36); BLOOD UREA NITROGEN 10 mg/dL (7-21); CALCIUM 8.8 mg/dL (8.4-10.5); GFR NON-AFRICAN AMERICAN > 60
[2018-01-08 07:13] LABS: BASO # 0.01 K/mm3 (0.0-2.0); BASO % 0.2 % (0.0-3.0); EOS # 0.1 (0.0-0.7); EOS % 2.6 % (1.5-5.0); GRAN # 2.38 (1.4-6.5); GRAN % 47.4 % (50.0-68.0); LYMPH # 2.1 (1.2-3.4); LYMPH % 41.2 % (22.0-35.0); MEAN CELL VOLUME 87.9 fl (80.0-105.0); MEAN CORPUSCULAR HEMOGLOBIN 29.7 pg (25.0-35.0); MEAN CORPUSCULAR HGB CONC 33.7 g/dl (31.0-37.0); MEAN PLATELET VOLUME 10.6 fl (7.0-11.0); MONO # 0.4 (0.1-0.6); MONO % 8.6 % (1.0-6.0); RBC 4.72 10^6/uL (3.5-6.1); RED CELL DISTRIBUTION WIDTH 13.1 % (11.5-14.5)
[2018-01-08] MEDS: Divalproex 250 mg DR (BID formulation) PO SCH (09:41)
[2018-01-08] MEDS: Enoxaparin 40 mg Syringe SC SCH (09:41)
[2018-01-08] MEDS: Multivitamin With Minerals Tab PO SCH (09:42)
--- NOTE | 2018-01-08 16:30 | CP.PCM.DIS ---
Provider - Provider Date of Admission: 01/06/18 13:15 Attending physician: Lennie Valladares DO Consults: Psychiatry: Dr. Cook Time Spent in preparation of Discharge (in minutes): 45 Hospital Course - Lab Results Lab Results: Micro Results 01/06/18 12:00 Urine,Clean Catch Urine Culture - Final No Growth (<1,000 CFU/ML) Most Recent Lab Values WBC 5.0 10^3/ul (4.5-11.0) 01/08/18 06:00 RBC 4.72 10^6/uL (3.5-6.1) 01/08/18 06:00 Hgb 14.0 g/dL (12.0-16.0) 01/08/18 06:00 Hct 41.5 % (36.0-48.0) 01/08/18 06:00 MCV 87.9 fl (80.0-105.0) 01/08/18 06:00 MCH 29.7 pg (25.0-35.0) 01/08/18 06:00 MCHC 33.7 g/dl (31.0-37.0) 01/08/18 06:00 RDW 13.1 % (11.5-14.5) 01/08/18 06:00 Plt Count 188 10^3/uL (120.0-450.0) 01/08/18 06:00 MPV 10.6 fl (7.0-11.0) 01/08/18 06:00 Gran % 47.4 % (50.0-68.0) L 01/08/18 06:00 Lymph % (Auto) 41.2 % (22.0-35.0) H 01/08/18 06:00 [place] % (Auto) 8.6 % (1.0-6.0) H 01/08/18 06:00 Eos % (Auto) 2.6 % (1.5-5.0) 01/08/18 06:00 Baso % (Auto) 0.2 % (0.0-3.0) 01/08/18 06:00 Gran # 2.38 (1.4-6.5) 01/08/18 06:00 Lymph # (Auto) 2.1 (1.2-3.4) 01/08/18 06:00 [place] # (Auto) 0.4 (0.1-0.6) 01/08/18 06:00 Eos # (Auto) 0.1 (0.0-0.7) 01/08/18 06:00 Baso # (Auto) 0.01 K/mm3 (0.0-2.0) 01/08/18 06:00 Sodium 143 mmol/L (132-148) 01/08/18 06:00 Potassium 3.7 mmol/L (3.6-5.0) 01/08/18 06:00 Chloride 109 mmol/L (98-107) H 01/08/18 06:00 Carbon Dioxide 26 mmol/L (21-33) 01/08/18 06:00 Anion Gap 12 (10-20) 01/08/18 06:00 BUN 10 mg/dL (7-21) 01/08/18 06:00 Creatinine 0.6 mg/dl (0.7-1.2) L 01/08/18 06:00 Est GFR ( Amer) > 60 01/08/18 06:00 Est GFR (Non-Af Amer) > 60 01/08/18 06:00 Random Glucose 81 mg/dL (70-110) 01/08/18 06:00 Hemoglobin A1c 5.6 % (4.2-6.5) 01/07/18 06:10 Calcium 8.8 mg/dL (8.4-10.5) 01/08/18 06:00 Magnesium 2.0 mg/dL (1.7-2.2) 01/06/18 12:00 Total Bilirubin 0.4 mg/dL (0.2-1.3) 01/08/18 06:00 AST 24 U/L (14-36) 01/08/18 06:00 ALT 22 U/L (7-56) 01/08/18 06:00 Alkaline Phosphatase 83 U/L (38-126) 01/08/18 06:00 Lactate Dehydrogenase 439 U/L (333-699) 01/06/18 12:00 Total Creatine Kinase 254 U/L (35-230) H 01/06/18 12:00 CK-MB (CK-2) 3.7 ng/mL (0.0-3.6) H 01/06/18 12:00 CK-MB (CK-2) % Cancelled 01/06/18 12:00 Troponin I < 0.01 ng/mL 01/06/18 12:00 Total Protein 6.6 g/dL (5.8-8.3) 01/08/18 06:00 Albumin 3.4 g/dL (3.0-4.8) 01/08/18 06:00 Globulin 3.1 gm/dL 01/08/18 06:00 Albumin/Globulin Ratio 1.1 (1.1-1.8) 01/08/18 06:00 Urine Color Yellow (YELLOW) 01/06/18 12:14 Urine Appearance Cloudy (CLEAR) 01/06/18 12:14 Urine pH 6.0 (4.7-8.0) 01/06/18 12:14 Ur Specific [place] 1.025 (1.005-1.035) 01/06/18 12:14 Urine Protein 30 mg/dL (<30 mg/dL) H 01/06/18 12:14 Urine Glucose (UA) Negative mg/dL (NEGATIVE) 01/06/18 12:14 Urine Ketones Trace mg/dL (NEGATIVE) H 01/06/18 12:14 Urine Blood Negative (NEGATIVE) 01/06/18 12:14 Urine Nitrate Positive (NEGATIVE) H 01/06/18 12:14 Urine Bilirubin Small (NEGATIVE) H 01/06/18 12:14 Urine Urobilinogen 1.0 E.U./dL (<1 E.U./dL) H 01/06/18 12:14 Ur Leukocyte Esterase Trace [place]/uL (NEGATIVE) H 01/06/18 12:14 Urine RBC 0 - 2 /hpf (0-2) 01/06/18 12:14 Urine WBC 1 - 3 /hpf (0-6) 01/06/18 12:14 Ur Epithelial Cells 10 - 12 /hpf (0-5) 01/06/18 12:14 Urine Bacteria Mod (NEG) 01/06/18 12:14 Salicylates < 1 mg/dL (2.0-20.0) L 01/06/18 11:56 Urine Opiates Screen Positive (NEGATIVE) H 01/06/18 12:14 Urine Methadone Screen Positive (NEGATIVE) H 01/06/18 12:14 Acetaminophen < 10.0 ug/ml (10.0-20.0) L 01/06/18 11:56 Ur Barbiturates Screen Negative (NEGATIVE) 01/06/18 12:14 Ur Phencyclidine Scrn Negative (NEGATIVE) 01/06/18 12:14 Ur Amphetamines Screen Negative (NEGATIVE) 01/06/18 12:14 U Benzodiazepines Scrn Positive (NEGATIVE) H 01/06/18 12:14 U Oth Cocaine Metabols Negative (NEGATIVE) 01/06/18 12:14 U Cannabinoids Screen Positive (NEGATIVE) H 01/06/18 12:14 Alcohol, Quantitative < 10 mg/dL (0-10) 01/06/18 11:56 - Hospital Course Hospital Course: Mrs Scott is a 42 year old female with a PMHx of asthma, bipolar disorder, opioid use disorder on methadone, tobacco abuse, who presents to our ED with suicidal ideations and found to have a potassium of 2.4. Pt was admitted to medicine service for treatment of hypokalemia and management of chronic medical conditions. Hypokalemia was diagnosed and treated with po KCl. K subsequently was repleted to 3.5 and 3.7 upon discharge. She was found to have a UTI in ED without symptoms. She was given a treatment of rocephin in the ED. Pt was followed closely for symptoms. Psychiatry was consulted for recommendation in regards to patients history of bipolar disorder and opioid use disorder on m ethadone. She was started on clonidine/zofran and ibuprofen for treatment of withdrawal symptoms. Pt was continued on her home psychiatric medications. Her suicidal ideations had resolved throughout her hospital stay. She was started on a nicotine patch for her tobacco use disorder. She had complained of abdominal pain and diarrhea during her hospital stay likely secondary to opioid withdrawal that had resolved upon discharge. She also had symptoms of b/l lower extremity pain. LE u/s was obtained which showed no DVT. Pain had resolved upon discharge. Pt was started on duoneb treatments for symptoms of asthma exacerbation. Dr. Cook had seen and evaluated the patient. Pt agreed to admission to the psychiatric unit where she was discharged. Pt to follow-up with primary care doctor within 3-5 days. Pt to stop norvasc and hydrochlorothiazide and start lisinopril for HTN. Pt advised to refrain from drug abuse. Pt advised to return to emergency room if symptoms return. Discharge Exam - Head Exam Head Exam: NORMAL INSPECTION, NORMOCEPHALIC - Eye Exam Eye Exam: EOMI, Normal appearance - ENT Exam ENT Exam: Mucous Membranes Moist, Normal Exam - Neck Exam Neck exam: Normal Inspection - Respiratory Exam Respiratory Exam: Clear to PA & Lateral, NORMAL BREATHING PATTERN - Cardiovascular Exam Cardiovascular Exam: REGULAR RHYTHM, +S1, +S2 - GI/Abdominal Exam GI & Abdominal Exam: Normal Bowel Sounds, Soft. absent: Firm - Extremities Exam Extremities exam: normal inspection - Back Exam Back exam: NORMAL INSPECTION. absent: CVA tenderness (L), CVA tenderness (R) - Neurological Exam Neurological exam: Alert, CN II-XII Intact, Oriented x3 - Psychiatric Exam Psychiatric exam: Normal Affect, Normal Mood Additional comments: no suicidal ideations - Skin Skin Exam: Dry, Intact, Warm Discharge Plan - Follow Up Plan Condition: FAIR Disposition: TRANSF TO SNF Instructions: Hypokalemia (DC), Hyperglycemia, Adult (DC), Urinary Tract Infe ction in Women (DC), Depression (DC) Additional Instructions: Please follow up with your primary care doctor within 3-5 days. Please STOP your home norvasc and hydrochlorothiazide. Please take the new medication Lisinopril for your blood pressure. Please refrain from drug use. Please return to the emergency room if symptoms return. Referrals: Marques Harris MD [Family Provider] -
[2018-01-08 18:16] VITALS: BP 135/91; PULSE 61; RESP 18; TEMP 98.2
--- NOTE | 2018-01-09 05:27 | CON ---
DATE: 01/08/2018 HISTORY OF PRESENT ILLNESS: In short, the patient is 42-year-old female with reported history of opioid addiction. The patient also has history of mood disorder and anxiety disorder. The patient was on methadone in the past. The patient brought herself to the hospital complaining of suicidal ideation. The patient was found to have electrolyte imbalance and that is why the patient was admitted on the medical side. Psych consult was called for evaluation of depressive symptoms and possible suicidal ideation. The patient was seen and examined, discussed with staff. The patient presented to be depressed and tearful. The patient reported that she left her apartment and her boyfriend obtained restraining order against her. The patient reported that her three kids are under care of her stepmother. The patient reported that they are safe. The patient reported that she was feeling hopeless and helpless. The patient started to use heroine daily. The patient was not able to contract for safety, but wants to get better. This remote mortgage underwriter offered admission to the Psychiatric Inpatient Unit. In regards of the past history, the patient was discharged from [facility] on 03/2017 on Depakote, Seroquel as well as Celexa. VITAL SIGNS: Reviewed. Temperature 98, pulse is 70, blood pressure 130/85, respiration 15, oxygen saturation is 97. MEDICATIONS: Reviewed. Xanax 0.25 mg three times a day, Celexa 10 mg at the nighttime, Catapres, vitamin B12, Depakote, Lovenox, folic acid, Motrin, Zestril, multivitamins, Nicoderm, Zofran, and Seroquel. LABORATORY DATA: Reviewed. Toxicology reviewed. The patient was positive for cannabis, benzodiazepines, methadone as well as opioids. MENTAL STATUS EXAMINATION: The patient presented to be depressed, tearful, poor eye contact. Speech was overproductive, low volume. Mood described as very depressed and hopeless. Thought process circumstantial, but no tangential. Thought content, the patient denied visual, auditory, tactile hallucinations. Denied paranoid ideation. The patient reported that she has passive wish to be . Denied any intent or plan. Last time the patient had suicidal ideation was prior to coming to the hospital. The patient wanted to jump off the bridge, but the patient choose to coming to the hospital and start feeling better. Insight and judgment seems to be limited. Impulses are well controlled. IMPRESSION: Rule out major depressive disorder, rule out bipolar disorder, polysubstance abuse and dependence. PLAN: This remote mortgage underwriter offered the patient admission to the Psychiatric Inpatient Unit for depression as well as anxiety as well as for suicidal ideation. Medication management discussed. Medications were confirmed by the patient's pharmacy. We will transfer the patient today for further evaluation and stabilization. Thank you very much for letting me participate in care of your patient. Should you have any questions give me a call back. Angelina Cook MD
--- NOTE | 2018-01-09 14:05 | CP.PCM.CON ---
History of Present Illness - History of Present Illness History of Present Illness: INTERNAL MEDICINE CONSULT NOTE FOR DR. LEIGHTON Malcolm D.O. PGY-1 Mrs Scott is a 42 year old female with a PMHx of asthma, bipolar disorder, opioid use disorder on methadone, tobacco abuse, admitted to [facility] for suicidal ideations. Her recent stressors include being kicked out of her home by her significant other, who also recently enacted a restraining order against her. She's been living in a homeless jail and states that also a big stressor in her life. She's on a methadone program which has been tapered down to 5mg daily - she states this is not covering her withdrawal symptoms which is forcing her to use heroin (via snorting) - her last heroin use was this morning at 8am. Pt initially found to have a potassium of 2.4 and subsequently repleted. Pt transferred from medicine service to psychiatry service. Upon interview, pt seen and examined in psychiatry unit. Pt denies any complaints. She denies fevers, chills, headache, dizziness, chest pain, palpitations, shortness of breath, nausea, vomiting, constipation, diarrhea, dysuria. PMHx: asthma, bipolar disorder, opioid use disorder on methadone, tobacco abuse PSHx: x 3. Endometrial ablation Home Meds: hydrochlorothiazide 25mg po qd, amlodipine 10mg po qd, seroquel 200mg po hs, divalproex 250mg po bid, citalopram 10mg po hs Allergies: Codeine - rash FamHx: mother - heart problems SocialHx: 20 pack year tobacco hx - current smoker, denies alcohol, 5-10 bags of heroin use via snort for past 4 years on methadone program, marijuana use, has 3 kids who live with boyfriends mother, currently patient lives in homeless jail Review of Systems - Review of Systems Review of Systems: per HPI Past Patient History - Infectious Disease Hx of Infectious Diseases: None - Tetanus Immunizations Tetanus Immunization: Up to Date - Past Medical History & Family History Past Medical History?: Yes - Past Social History Smoking Status: Light Smoker < 10 Cigarettes Daily - CARDIAC Hx Hypertension: Yes - PULMONARY Hx Bronchitis: Yes - NEUROLOGICAL Hx Seizures: No - HEENT Hx HEENT Problems: No - RENAL Hx Chronic Kidney Disease: No - ENDOCRINE/METABOLIC Hx Endocrine Disorders: No - HEMATOLOGICAL/ONCOLOGICAL Hx Cancer: No - INTEGUMENTARY Hx Dermatological Problems: No - MUSCULOSKELETAL/RHEUMATOLOGICAL Hx Falls: No - GASTROINTESTINAL Hx Gastrointestinal Disorders: No - GENITOURINARY/GYNECOLOGICAL Hx Sexually Transmitted Disorders: No - PSYCHIATRIC Hx Anxiety: Yes Hx Depression: Yes Hx Substance Use: Yes - SURGICAL HISTORY Hx Section: Yes (x3) Hx Tubal Ligation: Yes Other/Comment: Endometriosis ablation - ANESTHESIA Hx Anesthesia: Yes Hx Anesthesia Reactions: No Hx Malignant Hyperthermia: No Meds Home Medications: Home Medication List Medication Instructions Recorded Confirmed Type ALPRAZolam [Xanax] 0.25 mg PO TID tab 01/08/18 Rx Cyanocobalamin [Vitamin B12 100 100 mcg PO DAILY tab 01/08/18 Rx mcg Tab] Folic Acid 1 mg PO DAILY tab 01/08/18 Rx Lisinopril [Zestril] 10 mg PO DAILY tab 01/08/18 Rx Multimineral/Multivitamin 1 tab PO 0800 tab 01/08/18 Rx [Therapeutic-M Tab] Allergies/Adverse Reactions: Allergies Allergy/AdvReac Type Severity Reaction Status Date / Time codeine Allergy RASH Verified 01/08/18 23:02 Physical Exam - Constitutional Appears: Well, Non-toxic, No Acute Distress - Head Exam Head Exam: NORMAL INSPECTION, NORMOCEPHALIC - Eye Exam Eye Exam: EOMI, Normal appearance - ENT Exam ENT Exam: Mucous Membranes Moist, Normal Exam - Neck Exam Neck exam: Positive for: Normal Inspection - Respiratory Exam Respiratory Exam: Clear to Auscultation Bilateral, NORMAL BREATHING PATTERN - Cardiovascular Exam Cardiovascular Exam: REGULAR RHYTHM, +S1, +S2 - GI/Abdominal Exam GI & Abdominal Exam: Normal Bowel Sounds, Soft. absent: Tenderness - Extremities Exam Extremities exam: Positive for: normal inspection. Negative for: calf tenderness - Back Exam Back exam: NORMAL INSPECTION - Neurological Exam Neurological exam: Alert, Oriented x3 - Psychiatric Exam Psychiatric exam: Normal Affect, Normal Mood Additional comments: no suicidal ideations. - Skin Skin Exam: Dry, Intact, Warm Results - Vital Signs Recent Vital Signs: Last Vital Signs Temp 98.2 F 01/08/18 18:15 Pulse 61 01/08/18 18:15 Resp 18 01/08/18 18:15 BP 135/91 H 01/08/18 18:15 Pulse Ox 97 01/08/18 06:00 - Labs Result Diagrams: 01/08/18 06:00 01/08/18 06:00 Assessment & Plan - Assessment and Plan (Free Text) Assessment: Mrs Scott is a 42 year old female with a PMHx of asthma, bipolar disorder, opioid use disorder on methadone, tobacco abuse, who presents to our ED with suicidal ideations and found to have a potassium of 2.4. Pt potassium repleted with po KCl to levels wnl. Pt transferred to psychiatric unit for further management of psychiatric conditions. Medicine team consulted for management of medical conditions. Plan: HTN hold home hydrochlorothiazide 25mg po qd as has side effect of hypokalemia hold home amlodipine 10mg po qd as this can peripheral edema (patient complaining of increased LE swelling) Continue lisinopril 10mg po Continue clonidine prn withdrawal symptoms Monitor renal function & BMP Hypokalemia potassium 2.4 on previous admission. Subsequently repleted likely due to poor unbalanced diet as patient living in homeless jail; denied vomiting/diarrhea Replete hypokalemia as necessary continue b12/folate for malnutrition. Tobacco Abuse consult psychiatry, Dr Alfaro nicotine patch 14mg td Hypokalemia -potassium 2.4 on admission -likely due to poor unbalanced diet as patient living in homeless jail; denied vomiting/diarrhea -40meq po given in ED. Give 20meq po Hx of suicidal Ideations recent stressors + medications non-compliance continue with psych recs Bipolar Disorder Depressed Severe w/o Psychotic Features patient stated she hasn't taken her citalopram for the last 1 month continue psych medications per psych recs Opioid Use Disorder, Severe, Dependence start medications for potential opioid withdrawal symptoms start zofran for nausea, ibuprofen for pain, clonidine for withdrawal symptoms Hx of Asthma start duoneb 3ml inh q6h prn for dyspnea Case seen, examined and discussed with attending physician, Dr. Valladares
--- NOTE | 2018-01-09 17:27 | PQF ---
PROVIDER RESPONSE TEXT: Mild intermittent asthma with no acute exacerbation REVIEWER QUERY TEXT: Asthma Specificity and Type Asthma is documented in the Medical Record. Please specify the type and severity of asthma and indic ate if this is associated with exacerbation or status asthmaticus. Such as: -- Mild intermittent -- Mild persistent -- Moderate persistent -- Severe persistent -- Exercise induced bronchospasm -- Cough variant asthma -- Other, please specify The patient's Clinical Indicators include: Asthma exacerbation is documented on the discharge summary. Please specify type, as listed below. Hood adames. Query created by: Jesika Lang on 01/09/2018 5:19 PM Electronically signed by: Lennie Valladares DO 01/09/2018 5:25 PM
== END 2018-01-08 18:20 | DRG 296 ==
LOC: ED 10:28 → ERH 13:15 → 2RNO 14:44
PROVIDERS: ADMIT Internal Medicine; ATTEND Hospitalist
DX: E87.6 Hypokalemia (principal); N39.0 Urinary tract infection, site not specified; F11.90 Opioid use, unspecified, uncomplicated; J45.20 Mild intermittent asthma, uncomplicated; I10 Essential (primary) hypertension; F31.9 Bipolar disorder, unspecified; M79.605 Pain in left leg; R19.7 Diarrhea, unspecified; R45.851 Suicidal ideations; R82.90 Unspecified abnormal findings in urine; Z87.891 Personal history of nicotine dependence; Z98.51 Tubal ligation status; Z98.891 History of uterine scar from previous surgery

== ENCOUNTER 2018-01-08 18:23 | Inpatient (IN) | payer MEDICAID ==
[2018-01-08 18:46] VITALS: BMI 37.4
--- NOTE | 2018-01-09 03:26 | PCM.BM ---
<Nii Perez - Last Filed: 01/09/18 03:24> Treatment Plan Problems - Problems identified on initial assessmt Hopelessness/Helplessness Date Initiated: 01/09/18 Time Initiated: 03:24 Assessment reference: NA Status: Active Feelings of Worthlessness Date Initiated: 01/09/18 Time Initiated: 03:24 Assessment reference: NA Status: Active Anxiety Related to Substance Use Date Initiated: 01/09/18 Time Initiated: 03:25 Assessment reference: NA Status: Active Ineffective Coping Date Initiated: 01/09/18 Time Initiated: 03:25 Assessment reference: NA Status: Active Treatment assets and liabiliti Patient Assests: adapts well, cooperative, self-reliant, ADL independent, physically healthy, negotiates basic needs, cognitively intact Patient Liabilities: live alone, financial problems, poor support system, relationship conflicts, substance abuse - Milieu Protocol Maintain good personal hygiene: daily Encourage regular showers, daily Remind patient to perform daily oral care, daily Assist patient to perform ADL's Conduct patient checks and document Observation sheet: Q15 minutes Maintain personal safety: every shift Educate patient to report safety concerns to staff, every shift Monitor environment for contraband/sharps Medication safety: Monitor for expected outcome, potential side effects: every shift, Assess barriers to learning: every shift, Assess readiness for medication education: every shift Discharge/Continuing Care - Education Needs Education Needs: Patient Medication, Patient Diagnosis/Disease Process, Patient Coping Skills, Patient Community resources, Patient Activities of Daily Living, Patient Nutrition, Patient Health Practices/Safety, Patient Aftercare Safety Plan - Discharge Discharge Criteria: Tolerates medication w/o severe side effects, Free of Suicidal thoughts, Normal sleep pattern, Ability to care for self, No longer exhibiting s/s of withdrawal, Reduction of target symptoms <Angelina Cook - Last Filed: 01/09/18 16:18> - Diagnosis (1) Bipolar disorder Status: Acute Interventions: 01/09/18 16:18 Psychoeducation Psychopharmacology/adjustment of medications as needed/ monitoring possible side effects Monitor blood level of mood stabilizers Evaluate pt on daily basis Compliance with medications and follow up appointments Suicide and homicide risk assessment and prevention, coping strategies, safety plan Relapse prevention Reduction of symptoms Improve functional status Family involvement As outpatient: cognitive behavioral therapy (2) Polysubstance abuse Status: Acute Interventions: 01/09/18 16:19 Monitoring withdrawal symptoms Medical detoxification Pharmacotherapy for alcohol/benzos/opioid dependence Maintaining sobriety Relapse prevention Possible rehabilitation Motivational interviewing 12-step programs: AA meetings <Estela Wall - Last Filed: 01/10/18 12:09> Family Contact Family involvement: Famliy/SO not involved <Betsey Ballesteros - Last Filed: 01/10/18 12:11>
[2018-01-09] MEDS ORDERED: Divalproex 250 mg DR (BID formulation) PO SCH (06:00)
[2018-01-09 08:20] LABS: GLUCOSE,FASTING 120 mg/dL (65-110); HDL CHOLESTEROL 31 mg/dL (29-60)
[2018-01-09 08:31] LABS: FREE T4 0.86 ng/dL (0.78-2.19); LDL CHOLESTEROL 126 mg/dL (0-129)
[2018-01-09] MEDS: Multivitamin Therapeutic Tab PO SCH (09:39)
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
[2018-01-10] MEDS: Multivitamin Therapeutic Tab PO SCH (09:32)
--- NOTE | 2018-01-10 15:17 | PCM.PYCHPN ---
Psychiatric Progress Note - Psychiatric Progress Note Patient seen today, length of contact: 30 minutes Patient Chief Complaint: "my mind is racing, I don't know what to do, I'm so helpless, was is going to happened with me?" Problems Identified/Issues Discussed: Suicide/ homicide prevention, past psychiatric h/o, current psychiatric symptoms, medical problems, risk/benefits and alternatives of medications, medications compliance, coping strategies, substance abuse h/o, relapse prevention, importance of follow up with psychiatrist and therapist, discharge plan. Medical Problems: see HPI Diagnostic Results: Lab Results 01/09/18 07:40: RPR Nonreactive 01/09/18 07:40: Fasting Glucose 120 H, Triglycerides 192 H, Cholesterol 196, LDL Cholesterol Direct 126, HDL Cholesterol 31 01/09/18 07:40: Free T4 0.86, TSH 3rd Generation 0.11 L Vital Signs Temp Pulse Resp BP 01/10/18 09:31 80 129/97 H 01/10/18 07:00 97.9 F 80 22 129/97 H 01/10/18 06:15 80 120/97 H 01/09/18 17:34 49 L 121/82 01/09/18 16:00 49 L 121/82 01/09/18 09:39 77 138/97 H 01/09/18 09:38 77 138/97 H 01/09/18 07:04 97.2 F L 77 20 138/97 H 01/09/18 06:56 77 138/97 H 01/08/18 19:00 97.9 F 61 19 116/80 DSM 5 Symptoms Update: shortly patient is 42-year-old female, long history of opioid use disorder, alcohol use disorder, bipolar disorder, patient had few previous admi ssions to the [facility], patient currently homeless, relapse on herein and alcohol, patient came to the hospital for evaluation of depressive symptoms, possible suicidal ideation with a plan to jump off the bridge, patient required medical admission for electrolytes disbalance, patient was stabilized on the medical side, patient was seen by this screenplay writer as a consult around, patient was medically cleared, patient was transferred to the psychiatric inpatient unit on 01/08/2018 uneventfully. Patient requires further evaluation and stabilization, medications initiate action on titration. Patient was seen in her room, patient hysterically crying, patient reports that she feels very anxious, patient is uncertain about her future, patient reports that She is feeling "depressed, hopeless, my mind is racing, I cannot relax". Patient was provided emotional support and empathic listening, patient seems to be receptive. Patient was open to increase the dose of medications, will do so. As per staff patient is self isolating, crying, not feasible in the unit, not participating in unit activities. So far patient tolerates medications well, no side effects observed or reported, aims 0, no EPS. Impression: As per history bipolar disorder and Opioid use disorder Polysubstance abuse and dependence PTSD Medication Change: Yes (Risperdal increased, Remeron started,) Medical Record Reviewed: Yes Consults ordered or reviewed: patient was cleared by medical team Mental Status Examination - Cognitive Function Orientation: Person, Place, Situation, Time Memory: Intact Attention: Poor Concentration: Poor Association: Loose Fund of Knowledge: Poor - Mood Mood: Depressed, Anxious - Affect Affect: Flat (and tearful) - Formal Thought Process Formal Thought Process: No Impairment - Suicidal Ideation Suicidal Ideation: No - Homicidal Ideation Homicidal Ideation: No Goal/Treatment Plan - Goal/Treatment Plan Need for Continued Stay: Remain at risks for inpatient hospitalization, Severe depression anxiety, Discharge may exacerbated symptoms, Severe functional impairment Progress Toward Problem(s) and Goals/Treatment Plan: Milieu/structure/supportive therapy Medical consult appreciated symptomatic treatment for opioid withdrawal's SW consultation for discharge plan and social issues Med management Seroquel was discontinued Risperdal 1 mg twice a day for more stabilization Paxil 10 mg at the nighttime Neurontin increased as needed medications Family involvement Follow up on labs Will monitor closely Pt was educated about risk/benefits and alternatives of medications, coping strategies (safety plan, suicide prevention), relapse prevention, importance of follow up with psychiatrist and therapist, stay away from drugs/alcohol/smoking Estimated Date of D/C: 01/16/18
[2018-01-11] MEDS: Multivitamin Therapeutic Tab PO SCH (08:42)
--- NOTE | 2018-01-11 16:21 | PCM.PYCHPN ---
Psychiatric Progress Note - Psychiatric Progress Note Patient seen today, length of contact: 30 minutes Patient Chief Complaint: "I feel better a little" Problems Identified/Issues Discussed: Suicide/ homicide prevention, past psychiatric h/o, current psychiatric symptoms, medical problems, risk/benefits and alternatives of medications, medications compliance, coping strategies, substance abuse h/o, relapse prevention, importance of follow up with psychiatrist and therapist, discharge plan. Medical Problems: see HPI Diagnostic Results: Lab Results 01/09/18 07:40: RPR Nonreactive 01/09/18 07:40: Fasting Glucose 120 H, Triglycerides 192 H, Cholesterol 196, LDL Cholesterol Direct 126, HDL Cholesterol 31 01/09/18 07:40: Free T4 0.86, TSH 3rd Generation 0.11 L Vital Signs Temp Pulse Resp BP 01/10/18 09:31 80 129/97 H 01/10/18 07:00 97.9 F 80 22 129/97 H 01/10/18 06:15 80 120/97 H 01/09/18 17:34 49 L 121/82 01/09/18 16:00 49 L 121/82 01/09/18 09:39 77 138/97 H 01/09/18 09:38 77 138/97 H 01/09/18 07:04 97.2 F L 77 20 138/97 H 01/09/18 06:56 77 138/97 H 01/08/18 19:00 97.9 F 61 19 116/80 DSM 5 Symptoms Update: shortly patient is 42-year-old female, long history of opioid use disorder, alcohol use disorder, bipolar disorder, patient had few previous admissions to the [facility], patient currently homeless, relapse on herein and alcohol, patient came to the hospital for evaluation of depressive symptoms, possible suicidal ideation with a plan to jump off the bridge, patient required medical admission for electrolytes disbalance, patient was stabilized on the medical side, patient was seen by this technical proposal writer as a consult around, patient was medically cleared, patient was transferred to the psychiatric inpatient unit on 01/08/2018 uneventfully. Patient requires further evaluation and stabilization, medications initiate action on titration. Patient was seen next to the nursing station pt presented with some improvement with her symptoms pt c/o anxiety pt c/o insomnia pt c/o nervousness. pt got good news, pt's boyfriend will accept pt back home, pt feels that she is safe now Patient was open to increase the dose of medications, will do so. As per staff patient is self isolating, crying, not feasible in the unit, not participating in unit activities. So far patient tolerates medications well, no side effects observed or reported, aims 0, no EPS. Impression: As per history bipolar disorder and Opioid use disorder Polysubstance abuse and dependence PTSD Medication Change: Yes (neurontin increased, paxil increased) Medical Record Reviewed: Yes Consults ordered or reviewed: patient was cleared by medical team Mental Status Examination - Cognitive Function Orientation: Person, Place, Situation, Time Memory: Intact Attention: Poor Concentration: Poor Association: Loose Fund of Knowledge: Poor - Mood Mood: Depressed, Anxious - Affect Affect: Flat (and tearful) - Formal Thought Process Formal Thought Process: No Impairment - Suicidal Ideation Suicidal Ideation: No - Homicidal Ideation Homicidal Ideation: No Goal/Treatment Plan - Goal/Treatment Plan Need for Continued Stay: Remain at risks for inpatient hospitalization, Severe depression anxiety, Discharge may exacerbated symptoms, Severe functional impairment Progress Toward Problem(s) and Goals/Treatment Plan: Milieu/structure/supportive therapy Medical consult appreciated symptomatic treatment for opioid withdrawal's SW consultation for discharge plan and social issues Med management Risperdal 1 mg twice a day for more stabilization Paxil 30 mg at the nighttime Neurontin increased 800mg po tid for mood stabilization remeron 30mg po hs as needed medications Family involvement Follow up on labs Will monitor closely Pt was educated about risk/benefits and alternatives of medications, coping strategies (safety plan, suicide prevention), relapse prevention, importance of follow up with psychiatrist and therapist, stay away from drugs/alcohol/smoking Estimated Date of D/C: 01/16/18
[2018-01-12] MEDS: Multivitamin Therapeutic Tab PO SCH (08:49)
--- NOTE | 2018-01-12 12:56 | PCM.PYCHPN ---
Psychiatric Progress Note - Psychiatric Progress Note Patient seen today, length of contact: 30 minutes Patient Chief Complaint: "I thought that I will be ready to go but now I feel that I am withdrawing and I am not ready yet, it is crazy" Problems Identified/Issues Discussed: Suicide/ homicide prevention, past psychiatric h/o, current psychiatric symptoms, medical problems, risk/benefits and alternatives of medications, medications compliance, coping strategies, substance abuse h/o, relapse prevention, importance of follow up with psychiatrist and therapist, discharge plan. Medical Problems: see HPI Diagnostic Results: Lab Results 01/09/18 07:40: RPR Nonreactive 01/09/18 07:40: Fasting Glucose 120 H, Triglycerides 192 H, Cholesterol 196, LDL Cholesterol Direct 126, HDL Cholesterol 31 01/09/18 07:40: Free T4 0.86, TSH 3rd Generation 0.11 L Vital Signs Temp Pulse Resp BP 01/10/18 09:31 80 129/97 H 01/10/18 07:00 97.9 F 80 22 129/97 H 01/10/18 06:15 80 120/97 H 01/09/18 17:34 49 L 121/82 01/09/18 16:00 49 L 121/82 01/09/18 09:39 77 138/97 H 01/09/18 09:38 77 138/97 H 01/09/18 07:04 97.2 F L 77 20 138/97 H 01/09/18 06:56 77 138/97 H 01/08/18 19:00 97.9 F 61 19 116/80 DSM 5 Symptoms Update: shortly patient is 42-year-old female, long history of opioid use disorder, alcohol use disorder, bipolar disorder, patient had few previous admissions to the [facility], patient currently homeless, relapse on herein and alcohol, patient came to the hospital for evaluation of depressive symptoms, possible suicidal ideation with a plan to jump off the bridge, patient required medical admission for electrolytes disbalance, patient was stabilized on the medical side, patient was seen by this job specification writer as a consult around, nancy ramsey was medically cleared, patient was transferred to the psychiatric inpatient unit on 01/08/2018 uneventfully. Patient requires further evaluation and stabilization, medications initiate action on titration. Patient was seen at the dinning area, pt said that she started to have severe withdrawals, pt was tearful, said that she does not feel well. pt c/o anxiety pt c/o insomnia pt c/o nervousness. pt got good news, pt's boyfriend will accept pt back home, pt feels that she is safe now Patient was open to increase the dose of medications, will do so. As per staff patient is more visible in the unit, pt started to go to the groups. So far patient tolerates medications well, no side effects observed or reported, aims 0, no EPS. Impression: As per history bipolar disorder and Opioid use disorder Polysubstance abuse and dependence PTSD Medication Change: Yes (Klonopin started) Medical Record Reviewed: Yes Mental Status Examination - Cognitive Function Orientation: Person, Place, Situation, Time Memory: Intact Attention: Poor Concentration: Poor Association: Loose Fund of Knowledge: Poor - Mood Mood: Depressed, Anxious - Affect Affect: Flat (and tearful) - Formal Thought Process Formal Thought Process: No Impairment - Suicidal Ideation Suicidal Ideation: No - Homicidal Ideation Homicidal Ideation: No Goal/Treatment Plan - Goal/Treatment Plan Need for Continued Stay: Remain at risks for inpatient hospitalization, Severe depression anxiety, Discharge may exacerbated symptoms, Severe functional impairment Progress Toward Problem(s) and Goals/Treatment Plan: Milieu/structure/supportive therapy Medical consult appreciated symptomatic treatment for opioid withdrawal's SW consultation for discharge plan and social issues Med management Risperdal 1 mg twice a day for more stabilization Paxil 30 mg at the nighttime Neurontin increased 800mg po tid for mood stabilization remeron 30mg po hs Klonopin 1 mg twice a day as needed medications Family involvement Follow up on labs Will monitor closely Pt was educated about risk/benefits and alternatives of medications, coping strategies (safety plan, suicide prevention), relapse prevention, importance of follow up with psychiatrist and therapist, stay away from drugs/alcohol/smoking Estimated Date of D/C: 01/16/18
[2018-01-13] MEDS: Multivitamin Therapeutic Tab PO SCH (08:11)
--- NOTE | 2018-01-13 10:41 | PCM.PYCHPN ---
Psychiatric Progress Note - Psychiatric Progress Note Patient seen today, length of contact: 30 minutes Patient Chief Complaint: "I want to go to inpatient rehab" Problems Identified/Issues Discussed: Suicide/ homicide prevention, past psychiatric h/o, current psychiatric s ymptoms, medical problems, risk/benefits and alternatives of medications, medications compliance, coping strategies, substance abuse h/o, relapse prevention, importance of follow up with psychiatrist and therapist, discharge plan. Medical Problems: see HPI Diagnostic Results: Lab Results 01/09/18 07:40: RPR Nonreactive 01/09/18 07:40: Fasting Glucose 120 H, Triglycerides 192 H, Cholesterol 196, LDL Cholesterol Direct 126, HDL Cholesterol 31 01/09/18 07:40: Free T4 0.86, TSH 3rd Generation 0.11 L Vital Signs Temp Pulse Resp BP 01/10/18 09:31 80 129/97 H 01/10/18 07:00 97.9 F 80 22 129/97 H 01/10/18 06:15 80 120/97 H 01/09/18 17:34 49 L 121/82 01/09/18 16:00 49 L 121/82 01/09/18 09:39 77 138/97 H 01/09/18 09:38 77 138/97 H 01/09/18 07:04 97.2 F L 77 20 138/97 H 01/09/18 06:56 77 138/97 H 01/08/18 19:00 97.9 F 61 19 116/80 DSM 5 Symptoms Update: shortly patient is 42-year-old female, long history of opioid use disorder, alcohol use disorder, bipolar disorder, patient had few previous admissions to the , patient currently homeless, relapse on herein and alcohol, patient came to the hospital for evaluation of depressive symptoms, possible suicidal ideation with a plan to jump off the bridge, patient required medical admission for electrolytes disbalance, patient was stabilized on the medical side, patient was seen by this fha underwriter as a consult around, patient was medically cleared, patient was transferred to the psychiatric inpat ient unit on 01/08/2018 uneventfully. Patient requires further evaluation and stabilization, medications initiate action on titration. Patient was seen next to the nursing station, pt c/o restlessness, was offered to d/c risperdal and started seroquel. pt said that night "was horrible, I was constantly moving, was very uncomfortable". overall pt is doing better, but still pt c/o anxiety pt c/o insomnia pt c/o nervousness. pt got good news, pt's boyfriend will accept pt back home, pt feels that she is safe now As per staff patient is more visible in the unit, pt started to go to the grou ps. So far patient tolerates medications well, no side effects observed or reported, aims 0, no EPS. Impression: As per history bipolar disorder and Opioid use disorder Polysubstance abuse and dependence PTSD Medication Change: Yes (Klonopin started) Medical Record Reviewed: Yes Mental Status Examination - Cognitive Function Orientation: Person, Place, Situation, Time Memory: Intact Attention: Poor Concentration: Poor Association: Loose Fund of Knowledge: Poor - Mood Mood: Depressed, Anxious - Affect Affect: Flat (and tearful) - Formal Thought Process Formal Thought Process: No Impairment - Suicidal Ideation Suicidal Ideation: No - Homicidal Ideation Homicidal Ideation: No Goal/Treatment Plan - Goal/Treatment Plan Need for Continued Stay: Remain at risks for inpatient hospitalization, Severe depression anxiety, Discharge may exacerbated symptoms, Severe functional impairment Progress Toward Problem(s) and Goals/Treatment Plan: Milieu/structure/supportive therapy Medical consult appreciated symptomatic treatment for opioid withdrawal's SW consultation for discharge plan and social issues Med management Risperdal d/c seroquel 100mg po amhs for mood stabilization Paxil 30 mg at the nighttime Neurontin increased 800mg po tid for mood stabilization remeron 30mg po hs Klonopin 1 mg twice a day as needed medications Family involvement Follow up on labs Will monitor closely Pt was educated about risk/benefits and alternatives of medications, coping str ategies (safety plan, suicide prevention), relapse prevention, importance of follow up with psychiatrist and therapist, stay away from drugs/alcohol/smoking Estimated Date of D/C: 01/16/18
[2018-01-14] MEDS ORDERED: Simethicone 80 mg Chewtab PO ONE (01:02)
--- NOTE | 2018-01-14 04:41 | CP.PCM.PN ---
Subjective - Date & Time of Evaluation Date of Evaluation: 01/14/18 Time of Evaluation: 04:34 - Subjective Subjective: Night Float Progress Note: Sudhir PGY2 Medicine resident paged to 5B to evaluate patient for "gas pains". Patient reports that for about three hours she has had constant epigastric and hypogastric abdominal pain with one episode of NBNB vomiting. She denies ever having this in the past. She denies any fevers, chills, diarrhea, melena, hematochezia, hematemesis, dysuria, vaginal discharge/pain, or any numbness/tingling/weakness of any extremity. Patient was given one dose of Simethicone without relief after adequate time to allow medication to take effect. Patient was then evaluated on 5B. Patient was noted to have TTP in the epigastric region and lower quadrants but abdomen was soft, non-distended and non-firm. Patient will be given one time dose of Tramadol, Protonix and a UA will be obtained as patient has recent history of UTI. Will follow up results of UA and relief of symptoms. If there is no relief, will consider further workup including abdominal imaging. Objective - Vital Signs/Intake and Output Vital Signs (last 24 hours): Temp Pulse Resp BP Pulse Ox 97.7 F 58 L 20 171/91 H 01/13/18 07:08 01/14/18 04:03 01/13/18 07:08 01/14/18 04:03 - Medications Medications: Current Medications Clonazepam (Klonopin) 1 mg PO BID [facility]; Protocol Last Admin: 01/13/18 16:24 Dose: 1 mg Clonidine HCl (Catapres) 0.1 mg PO TID PRN PRN Reason: withdrawal symptoms Last Admin: 01/14/18 02:15 Dose: 0.1 mg Cyanocobalamin (Vitamin B12 100 Mcg Tab) 100 mcg PO DAILY [facility] Last Admin: 01/13/18 08:12 Dose: 100 mcg Folic Acid (Folic Acid) 1 mg PO DAILY [facility]Y Last Admin: 01/13/18 08:11 Dose: 1 mg Gabapentin (Neurontin) 800 mg PO TID [facility]; Protocol Last Admin: 01/13/18 17:22 Dose: 800 mg Hydroxyzine Pamoate (Vistaril) 50 mg PO Q6H PRN; Protocol PRN Reason: Anxiety Last Admin: 01/14/18 03:13 Dose: 50 mg Ibuprofen (Motrin Tab) 200 mg PO Q8H PRN PRN Reason: Pain, moderate (4-7) Last Admin: 01/14/18 02:21 Dose: 200 mg Lisinopril (Zestril) 10 mg PO DAILY [facility] Last Admin: 01/13/18 08:12 Dose: 10 mg Mirtazapine (Remeron) 30 mg PO HS [facility] Last Admin: 01/13/18 21:06 Dose: 30 mg Multivitamins (Thera Tab) 1 tab PO 0800 [facility] Last Admin: 01/13/18 08:11 Dose: 1 tab Nicotine (Nicoderm Cq) 1 patch TD DAILY [facility] Last Admin: 01/13/18 08:10 Dose: 1 patch Ondansetron HCl (Zofran Odt) 4 mg PO Q8H PRN PRN Reason: Nausea/Vomiting Last Admin: 01/10/18 06:16 Dose: 4 mg Pantoprazole Sodium (Protonix Ec Tab) 40 mg PO 0600 [facility] Paroxetine HCl (Paxil) 30 mg PO [facility] Last Admin: 01/13/18 21:07 Dose: 30 mg Quetiapine Fumarate (Seroquel) 100 mg PO [facility]; Protocol Last Admin: 01/13/18 21:06 Dose: 100 mg Tramadol HCl (Ultram) 50 mg PO TID [facility] Last Admin: 01/13/18 17:22 Dose: 50 mg Tramadol HCl (Ultram) 50 mg PO ONCE ONE Stop: 01/14/18 04:30
[2018-01-14] MEDS: Pantoprazole 40 mg EC Tab PO SCH (05:04)
[2018-01-14 05:32] LABS: PH,URINE 8.5 (4.7-8.0); URINE BILIRUBIN NEGATIVE (NEGATIVE); URINE BLOOD NEGATIVE (NEGATIVE); URINE GLUCOSE (UA) NEGATIVE (NEGATIVE); URINE LEUKOCYTE ESTERASE TRACE Leu/uL (NEGATIVE); URINE PROTEIN NEGATIVE mg/dL (<30 mg/dL); URINE UROBILINOGEN 0.2 E.U./dL (<1 E.U./dL)
[2018-01-14 05:34] LABS: URINE APPEARANCE CLOUDY (CLEAR); URINE COLOR YELLOW (YELLOW)
[2018-01-14 05:52] LABS: URINE AMORPHOUS SEDIMENT MODERATE; URINE BACTERIA FEW (NEG); URINE RBC 0 - 2 /hpf (0-2)
[2018-01-14] MEDS: Multivitamin Therapeutic Tab PO SCH (07:00)
[2018-01-14] MEDS ORDERED: Alum-Mag Hydrox-Simethicone Susp (30 mL) PO PRN (07:56)
[2018-01-14] MEDS ORDERED: Magnesium Hydroxide Susp 30 ml UD PO PRN (07:56)
[2018-01-14] MEDS ORDERED: Sodium Chloride 0.9% 1,000 ML IV SCH (11:00)
[2018-01-14 11:06] LABS: BASO # 0.01 K/mm3 (0.0-2.0); BASO % 0.1 % (0.0-3.0); GRAN # 7.77 (1.4-6.5); GRAN % 87.1 % (50.0-68.0); HEMOGLOBIN 14.9 g/dL (12.0-16.0); LYMPH # 0.9 (1.2-3.4); LYMPH % 10.2 % (22.0-35.0); MEAN CELL VOLUME 85.2 fl (80.0-105.0); MEAN CORPUSCULAR HEMOGLOBIN 30.2 pg (25.0-35.0); MEAN CORPUSCULAR HGB CONC 35.4 g/dl (31.0-37.0); MEAN PLATELET VOLUME 10.5 fl (7.0-11.0); MONO # 0.2 (0.1-0.6); MONO % 2.6 % (1.0-6.0); RBC 4.94 10^6/uL (3.5-6.1); RED CELL DISTRIBUTION WIDTH 12.7 % (11.5-14.5); WHITE BLOOD COUNT 8.9 10^3/ul (4.5-11.0)
[2018-01-14 11:16] LABS: ALB/GLOB RATIO 1.2 (1.1-1.8); ALBUMIN 4.3 g/dL (3.0-4.8); ALT/SGPT 51 U/L (7-56); AST/SGOT 27 U/L (14-36); BLOOD UREA NITROGEN 11 mg/dL (7-21); CALCIUM 9.1 mg/dL (8.4-10.5); GFR NON-AFRICAN AMERICAN > 60
[2018-01-14] MEDS: Simethicone 80 mg Chewtab PO PRN ×2 (14:36→18:51)
--- NOTE | 2018-01-14 14:50 | CT ---
Date of service: 01/14/2018 PROCEDURE: CT Abdomen and Pelvis with Oral contrast. HISTORY: diffuse abd pain COMPARISON: None. TECHNIQUE: Contiguous axial images of the abdomen and pelvis. . No IV contrast given. Coronal and Sagittal reformats generated. Radiation dose: Total exam DLP = 872 mGy-cm. This CT exam was performed using one or more of the following dose reduction techniques: Automated exposure control, adjustment of the mA and/or kV according to patient size, and/or use of iterative reconstruction technique. FINDINGS: LOWER THORAX: Unremarkable. LIVER: Unremarkable. No gross lesion or ductal dilatation. GALLBLADDER AND BILE DUCTS: Unremarkable. PANCREAS: Unremarkable. No mass. No ductal dilatation. SPLEEN: Unremarkable. No splenomegaly. ADRENALS: Unremarkable. KIDNEYS AND URETERS: Unremarkable. No stone or hydronephrosis. BLADDER: Grossly unremarkable. REPRODUCTIVE: Unremarkable. APPENDIX: Unremarkable. BOWEL: Unremarkable. No obstruction. No gross mural thickening. PERITONEUM: Unremarkable. No fluid collection. No free air. LYMPH NODES: Unremarkable. No enlarged lymph nodes. VASCULATURE: Unremarkable. No aortic aneurysm. BONES: No fracture or destructive lesion. OTHER FINDINGS: None. IMPRESSION: No acute findings
--- NOTE | 2018-01-14 16:07 | PCM.PYCHPN ---
Psychiatric Progress Note - Psychiatric Progress Note Patient seen today, length of contact: 30 minutes Patient Chief Complaint: "I think I am withdrawing from the methadone" Problems Identified/Issues Discussed: Suicide/ homicide prevention, past psychiatric h/o, current psychiatric symptoms, medical problems, risk/benefits and alternatives of medications, medications compliance, coping strategies, substance abuse h/o, relapse prevention, importance of follow up with psychiatrist and therapist, discharge plan. Medical Problems: see HPI Diagnostic Results: Lab Results 01/09/18 07:40: RPR Nonreactive 01/09/18 07:40: Fasting Glucose 120 H, Triglycerides 192 H, Cholesterol 196, LDL Cholesterol Direct 126, HDL Cholesterol 31 01/09/18 07:40: Free T4 0.86, TSH 3rd Generation 0.11 L Vital Signs Temp Pulse Resp BP 01/10/18 09:31 80 129/97 H 01/10/18 07:00 97.9 F 80 22 129/97 H 01/10/18 06:15 80 120/97 H 01/09/18 17:34 49 L 121/82 01/09/18 16:00 49 L 121/82 01/09/18 09:39 77 138/97 H 01/09/18 09:38 77 138/97 H 01/09/18 07:04 97.2 F L 77 20 138/97 H 01/09/18 06:56 77 138/97 H 01/08/18 19:00 97.9 F 61 19 116/80 Temp Pulse Resp BP Pulse Ox 97.8 F 62 22 141/83 01/14/18 06:48 01/14/18 15:40 01/14/18 06:48 01/14/18 15:40 DSM 5 Symptoms Update: shortly patient is 42-year-old female, long history of opioid use disorder, alcohol use disorder, bipolar disorder, patient had few previous admissions to the [facility], patient currently homeless, relapse on herein and alcohol, patient came to the hospital for evaluation of depressive symptoms, possible suicidal ideation with a plan to jump off the bridge, patient required medical admission for electrolytes disbalance, patient was stabilized on the medical side, patient was seen by this functional tester typewriters as a consult around, patient was medically cleared, patient was transferred to the psychiatric inpatient unit on 01/08/2018 uneventfully. Patient requires further evaluation and stabilization, medications initiate action on titration. Patient was seen in her room, pt c/o "withdrawals from methadone", but pt is in the hospital for the past 8days, it is unlikely that pt is withdrawing. pt c/o abdominal and back pain, pt was seen by medical team. pt said that she did not sleep because of the abdominal pain, pt said "I was doing fine during the day time yesterday". pt c/o anxiety pt c/o insomnia pt c/o nervousness. pt got good news, pt's boyfriend will accept pt back home, pt feels that she is safe now As per staff patient is staying in her room today. So far patient tolerates medications well, no side effects observed or reported, aims 0, no EPS. Impression: As per history bipolar disorder and Opioid use disorder Polysubstance abuse and dependence PTSD Medication Change: Yes (paxil/remeron increased) Medical Record Reviewed: Yes Consults ordered or reviewed: patient was cleared by medical team pt was seen by medical team again 01/14/18 Mental Status Examination - Cognitive Function Orientation: Person, Place, Situation, Time Memory: Intact Attention: Poor Concentration: Poor Association: Loose Fund of Knowledge: Poor - Mood Mood: Depressed, Anxious - Affect Affect: Flat (and tearful) - Formal Thought Process Formal Thought Process: No Impairment - Suicidal Ideation Suicidal Ideation: No - Homicidal Ideation Homicidal Ideation: No Goal/Treatment Plan - Goal/Treatment Plan Need for Continued Stay: Remain at risks for inpatient hospitalization, Severe depression anxiety, Discharge may exacerbated symptoms, Severe functional impairment Progress Toward Problem(s) and Goals/Treatment Plan: Milieu/structure/supportive therapy Medical consult appreciated symptomatic treatment for opioid withdrawal's SW consultation for discharge plan and social issues Med management Risperdal d/c seroquel 100mg po amhs for mood stabilization Paxil 40 mg at the nighttime Neurontin increased 800mg po tid for mood stabilization remeron 45mg po hs Klonopin 1 mg twice a day as needed medications Family involvement Follow up on labs Will monitor closely Pt was educated about risk/benefits and alternatives of medications, coping strategies (safety plan, suicide prevention), relapse prevention, importance of follow up with psychiatrist and therapist, stay away from drugs/alcohol/smoking Estimated Date of D/C: 01/18/18
[2018-01-14] MEDS: Lactobacillus Acidophilus 500 MU Cap PO SCH (16:47)
[2018-01-15] MEDS: Pantoprazole 40 mg EC Tab PO SCH (06:45)
[2018-01-15 07:37] VITALS: RESP 20
[2018-01-15] MEDS: Multivitamin Therapeutic Tab PO SCH (08:16)
[2018-01-15] MEDS: Lactobacillus Acidophilus 500 MU Cap PO SCH ×2 (08:16→17:04)
[2018-01-15] MEDS: Simethicone 80 mg Chewtab PO PRN ×3 (08:17→21:09)
--- NOTE | 2018-01-15 11:23 | PCM.PYCHPN ---
Psychiatric Progress Note - Psychiatric Progress Note Patient seen today, length of contact: 30 minutes Problems Identified/Issues Discussed: I reviewed assessment and recent notes. I met with patient in the dayroom and again in the hallway. She is a little unkempt but well-oriented to month, year and location. She reports that she remains depressed and anxious. Her main concern is her abdominal pain which she believes is secondary to gas. Apparently her po intake has been poor and she vomited yesterday (according to staff reports). Patient's thought process is coherent. She denies any perceptual disturbance or issues with her medications. She slept better last night despite her abdominal pain and continued anxiety. Feels klonopin has been very beneficial in this respect. Currently awaiting medical f/u regarding her abdominal complaints, she denies any other physical issues at this time. Diagnostic Results: As per history bipolar disorder and Opioid use disorder Polysubstance abuse and dependence PTSD Medication Change: No ( ) Medical Record Reviewed: Yes Mental Status Examination - Cognitive Function Orientation: Person, Place, Situation, Time Memory: Intact Attention: Poor Concentration: Poor Association: Loose Fund of Knowledge: Poor - Mood Mood: Depressed, Anxious - Affect Affect: Other (anxious) - Speech Speech: Appropriate - Formal Thought Process Formal Thought Process: No Impairment - Suicidal Ideation Suicidal Ideation: No - Homicidal Ideation Homicidal Ideation: No Goal/Treatment Plan - Goal/Treatment Plan Need for Continued Stay: Remain at risks for inpatient hospitalization, Severe depression anxiety, Discharge may exacerbated symptoms, Severe functional impairment Progress Toward Problem(s) and Goals/Treatment Plan: * c/w current tx and plan * Currently awaiting medical f/u regarding her abdominal complaints, she denies any other physical issues at this time. * Vitals reviewed and noted below: 01/14/18 01/14/18 01/14/18 06:48 07:00 15:40 Temperature 97.8 F Pulse Rate 57 L 57 L 62 Respiratory 22 Rate Blood Pressure 165/88 H 165/88 H 141/83 * New lab results noted below: Laboratory Results - last 24 hr 01/14/18 11:00 WBC 8.9 D RBC 4.94 Hgb 14.9 Hct 42.1 MCV 85.2 MCH 30.2 MCHC 35.4 RDW 12.7 Plt Count 206 MPV 10.5 Gran % 87.1 H Lymph % (Auto) 10.2 L [place] % (Auto) 2.6 Eos % (Auto) 0.0 L Baso % (Auto) 0.1 Gran # 7.77 H Lymph # (Auto) 0.9 L [place] # (Auto) 0.2 Eos # (Auto) 0.0 Baso # (Auto) 0.01 Laboratory Results - last 72 hr 01/14/18 01/14/18 01/14/18 05:00 11:00 11:00 WBC 8.9 D RBC 4.94 Hgb 14.9 Hct 42.1 MCV 85.2 MCH 30.2 MCHC 35.4 RDW 12.7 Plt Count 206 MPV 10.5 Gran % 87.1 H Lymph % (Auto) 10.2 L [place] % (Auto) 2.6 Eos % (Auto) 0.0 L Baso % (Auto) 0.1 Gran # 7.77 H Lymph # (Auto) 0.9 L [place] # (Auto) 0.2 Eos # (Auto) 0.0 Baso # (Auto) 0.01 Sodium 138 Potassium 4.0 Chloride 104 Carbon Dioxide 25 Anion Gap 14 BUN 11 Creatinine 0.6 L Est GFR ( Amer) > 60 Est GFR (Non-Af Amer) > 60 Random Glucose 143 H Calcium 9.1 Phosphorus 3.0 Magnesium 2.0 Total Bilirubin 0.5 AST 27 ALT 51 Alkaline Phosphatase 77 Total Protein 7.8 Albumin 4.3 Globulin 3.5 Albumin/Globulin Ratio 1.2 Urine Color Yellow Urine Appearance Cloudy Urine pH 8.5 Ur Specific [place] 1.015 Urine Protein Negative Urine Glucose (UA) Negative Urine Ketones Negative Urine Blood Negative Urine Nitrate Negative Urine Bilirubin Negative Urine Urobilinogen 0.2 Ur Leukocyte Esterase Trace H Urine RBC 0 - 2 Urine WBC 1 - 3 Ur Epithelial Cells 4 - 5 Amorphous Sediment Moderate Urine Bacteria Few Estimated Date of D/C: 01/18/18
--- NOTE | 2018-01-15 16:13 | CP.PCM.PN ---
<Cristina Malcolm - Last Filed: 01/15/18 21:08> Subjective - Date & Time of Evaluation Date of Evaluation: 01/15/18 Time of Evaluation: 16:57 - Subjective Subjective: INTERNAL MEDICINE PROGRESS NOTE FOR HOSPITALIST TEAM Cristina Malcolm D.O. PGY-1 Pt seen and examined at bedside this am. Pt reports her abdominal pain had improved. She reports she hasn't ate because shes scared she wont be able to tolerate the food. Nursing staff reports pt has been eating. She denies fevers, chills, headache, dizziness, nausea, vomiting, diarrhea, constipation, dysuria Objective - Vital Signs/Intake and Output Vital Signs (last 24 hours): Temp Pulse Resp BP Pulse Ox 98.0 F 70 20 166/101 H 01/15/18 07:36 01/15/18 08:16 01/15/18 07:36 01/15/18 08:16 - Medications Medications: Current Medications Al Hydrox/Mg Hydrox/Simethicone (Maalox Plus 30 Ml) 30 ml PO DAILY PRN PRN Reason: Upset Stomach Last Admin: 01/14/18 08:03 Dose: 30 ml Clonazepam (Klonopin) 1 mg PO BID [facility]; Protocol Last Admin: 01/15/18 08:17 Dose: 1 mg Clonidine HCl (Catapres) 0.1 mg PO TID PRN PRN Reason: withdrawal symptoms Last Admin: 01/14/18 02:15 Dose: 0.1 mg Cyanocobalamin (Vitamin B12 100 Mcg Tab) 100 mcg PO DAILY [facility] Last Admin: 01/15/18 08:16 Dose: 100 mcg Dicyclomine HCl (Bentyl) 10 mg PO BID PRN PRN Reason: GI distress Last Admin: 01/15/18 14:24 Dose: 10 mg Folic Acid (Folic Acid) 1 mg PO DAILY [facility] Last Admin: 01/15/18 08:16 Dose: 1 mg Gabapentin (Neurontin) 800 mg PO TID [facility]; Protocol Last Admin: 01/15/18 14:23 Dose: 800 mg Hydroxyzine Pamoate (Vistaril) 50 mg PO Q6H PRN; Protocol PRN Reason: Anxiety Last Admin: 01/14/18 21:21 Dose: 50 mg Lactobacillus Acidophilus (Bacid Acidophilus) 1 cap PO BID [facility] Last Admin: 01/15/18 08:16 Dose: 1 cap Lisinopril (Zestril) 10 mg PO DAILY [facility] Last Admin: 01/15/18 08:16 Dose: 10 mg Magnesium Hydroxide (Milk Of Magnesia) 30 ml PO DAILY PRN PRN Reason: Constipation Mirtazapine (Remeron) 45 mg PO [facility] Last Admin: 01/14/18 21:21 Dose: 45 mg Multivitamins (Thera Tab) 1 tab PO 0800 [facility] Last Admin: 01/15/18 08:16 Dose: 1 tab Nicotine (Nicoderm Cq) 1 patch TD DAILY [facility] Last Admin: 01/15/18 08:15 Dose: 1 patch Ondansetron HCl (Zofran Odt) 4 mg PO Q8H PRN PRN Reason: Nausea/Vomiting Last Admin: 01/14/18 21:23 Dose: 4 mg Pantoprazole Sodium (Protonix Ec Tab) 40 mg PO 0600 [facility] Last Admin: 01/15/18 06:45 Dose: 40 mg Paroxetine HCl (Paxil) 40 mg PO [facility] Last Admin: 01/14/18 21:20 Dose: 40 mg Quetiapine Fumarate (Seroquel) 100 mg PO [facility]; Protocol Last Admin: 01/15/18 11:58 Dose: Not Given Simethicone (Mylicon Chew Tab) 80 mg PO [facility] PRN PRN Reason: GI distress Last Admin: 01/15/18 12:00 Dose: 80 mg Tramadol HCl (Ultram) 50 mg PO TID [facility] Last Admin: 01/15/18 14:23 Dose: 50 mg - Labs Labs: 01/14/18 11:00 01/14/18 11:00 - Constitutional Appears: No Acute Distress - Head Exam Head Exam: NORMAL INSPECTION, NORMOCEPHALIC - Eye Exam Eye Exam: EOMI, Normal appearance - ENT Exam ENT Exam: Mucous Membranes Moist, Normal Exam - Neck Exam Neck Exam: Normal Inspection. absent: Meningismus - Respiratory Exam Respiratory Exam: Clear to Ausculation Bilateral, NORMAL BREATHING PATTERN - Cardiovascular Exam Cardiovascular Exam: REGULAR RHYTHM, +S1, +S2 - GI/Abdominal Exam GI & Abdominal Exam: Soft, Normal Bowel Sounds - Extremities Exam Extremities Exam: Normal Inspection. absent: Calf Tenderness - Back Exam Back Exam: NORMAL INSPECTION - Neurological Exam Neurological Exam: Alert, Awake, Oriented x3 - Psychiatric Exam Psychiatric exam: Normal Affect, Normal Mood - Skin Skin Exam: Dry, Intact, Warm Assessment and Plan - Assessment and Plan (Free Text) Assessment: Mrs Scott is a 42 year old female with a PMHx of asthma, bipolar disorder, opioid use disorder on methadone, tobacco abuse admitted to the psychiatric inpatient unit for evaluation and stabilization of depressive symptoms, possible suicidal ideation, medication management, opioid withdrawals. Plan: Abdominal Pain Resolving. Encourage diet as tolerated Continue bentyl Continue protonix Continue simethicone prn Continue maalox Continue milk of magnesia Continue treatment of psychiatric conditions Further recs per Dr. Feldman <Tsering Feldman - Last Filed: 01/16/18 14:46> Objective - Vital Signs/Intake and Output Vital Signs (last 24 hours): Temp Pulse Resp BP Pulse Ox 98.0 F 65 20 147/100 H 01/16/18 07:00 01/16/18 07:17 01/16/18 07:00 01/16/18 07:17 - Medications Medications: Current Medications Al Hydrox/Mg Hydrox/Simethicone (Maalox Plus 30 Ml) 30 ml PO DAILY PRN PRN Reason: Upset Stomach Last Admin: 01/14/18 08:03 Dose: 30 ml Clonazepam (Klonopin) 1 mg PO BID [facility]; Protocol Last Admin: 01/16/18 07:16 Dose: 1 mg Clonidine HCl (Catapres) 0.1 mg PO TID PRN PRN Reason: withdrawal symptoms Last Admin: 01/15/18 21:11 Dose: 0.1 mg Cyanocobalamin (Vitamin B12 100 Mcg Tab) 100 mcg PO DAILY [facility] Last Admin: 01/16/18 07:17 Dose: 100 mcg Dicyclomine HCl (Bentyl) 10 mg PO BID PRN PRN Reason: GI distress Last Admin: 01/15/18 14:24 Dose: 10 mg Folic Acid (Folic Acid) 1 mg PO DAILY [facility] Last Admin: 01/16/18 07:16 Dose: 1 mg Gabapentin (Neurontin) 800 mg PO TID [facility]; Protocol Last Admin: 01/16/18 13:23 Dose: 800 mg Hydroxyzine Pamoate (Vistaril) 50 mg PO Q6H PRN; Protocol PRN Reason: Anxiety Last Admin: 01/14/18 21:21 Dose: 50 mg Lactobacillus Acidophilus (Bacid Acidophilus) 1 cap PO BID [facility] Last Admin: 01/16/18 07:16 Dose: 1 cap Lisinopril (Zestril) 10 mg PO DAILY [facility] Last Admin: 01/16/18 07:17 Dose: 10 mg Magnesium Hydroxide (Milk Of Magnesia) 30 ml PO DAILY PRN PRN Reason: Constipation Mirtazapine (Remeron) 45 mg PO [facility] Last Admin: 01/15/18 21:09 Dose: 45 mg Multivitamins (Thera Tab) 1 tab PO 0800 [facility] Last Admin: 01/16/18 07:17 Dose: 1 tab Nicotine (Nicoderm Cq) 1 patch TD DAILY [facility] Last Admin: 01/16/18 07:17 Dose: 1 patch Ondansetron HCl (Zofran Odt) 4 mg PO Q8H PRN PRN Reason: Nausea/Vomiting Last Admin: 01/15/18 21:10 Dose: 4 mg Pantoprazole Sodium (Protonix Ec Tab) 40 mg PO 0600 [facility] Last Admin: 01/16/18 06:38 Dose: 40 mg Paroxetine HCl (Paxil) 40 mg PO [facility] Last Admin: 01/15/18 21:09 Dose: 40 mg Quetiapine Fumarate (Seroquel) 100 mg PO [facility]; Protocol Last Admin: 01/16/18 09:36 Dose: 100 mg Simethicone (Mylicon Chew Tab) 80 mg PO [facility] PRN PRN Reason: GI distress Last Admin: 01/15/18 21:09 Dose: 80 mg Tramadol HCl (Ultram) 50 mg PO TID [facility] Last Admin: 01/16/18 13:23 Dose: 50 mg - Labs Labs: 01/14/18 11:00 01/14/18 11:00 Attending/Attestation - Attestation I have personally seen and examined this patient.: Yes I have fully participated in the care of the patient.: Yes I have reviewed all pertinent clinical information, including history, physical exam and plan: Yes Notes (Text): 01/16/18 14:42 attending note; Patient seen and examined with resident in psychiatric floor. The patient complained of nonspecific abdominal pain and discomfort since yesterday. Patient was closely monitored by nursing staff. No nausea or vomiting. Tolerating liquid diet. CT abdomen and pelvis is negative. Patient was given simethicone and Maalox. Patient is also on Protonix. Patient is a 42 year old female with a PMHx of asthma, bipolar disorder, opioid use disorder on methadone, tobacco abuse admitted to the psychiatric inpatient unit for evaluation and stabilization of depressive symptoms, possible suicidal ideation, medication management, opioid withdrawals. multiple somatic symptoms. As per nursing staff the patient completed dinner. No nausea or vomiting noticed. Later that day the patient complained of chest discomfort. EKG showed no acute ST-T changes. Cardiac enzymes negative. Continue treatment for psychiatric disorder. Patient is medically stable. Please reconsult as needed. 01/16/18 14:46
--- NOTE | 2018-01-15 23:13 | CARD ---
APPROVED REPORT Date of service: 01/15/2018 EKG Measurement Heart [id number] <Conclusion> Normal sinus rhythm Septal infarct, age undetermined Abnormal ECG
[2018-01-16] MEDS: Pantoprazole 40 mg EC Tab PO SCH (06:38)
[2018-01-16] MEDS: Lactobacillus Acidophilus 500 MU Cap PO SCH ×2 (07:16→16:07)
[2018-01-16] MEDS: Multivitamin Therapeutic Tab PO SCH (07:17)
[2018-01-16] MEDS: Simethicone 80 mg Chewtab PO PRN (21:25)
--- NOTE | 2018-01-17 05:29 | PN ---
DATE: 01/16/2018 Covering for Angelina Cook MD. SUBJECTIVE: The patient is a 42-year-old white female who has appeared depressed. She carries with her history of bipolar disorder and an opioid use disorder along with other substance use and abuse along with PTSD. The patient is presently tearful and upset. She had a boyfriend who she cared for, he left her, she then somebody else, but went back to that old boyfriend who now has ____ her once again. The patient also has three children, and that have been assigned to her relatives to care for. She has a history of substance abuse. Nursing notes that she is still unkempt with the labile mood and affect, but is also considered to be somewhat manipulative and isolative. She is being maintained psychotropically on clonidine for withdrawal, Klonopin 1 mg b.i.d., Neurontin 800 mg t.i.d., nicotine patch, Paxil 40 mg at bedtime, Remeron 45 mg at bedtime, Seroquel 100 mg a.m. and at bedtime, tramadol 50 mg t.i.d. Her blood pressure is elevated at 147/100, pulse 65, temperature 98, respiratory rate 20. The patient is not homicidal, suicidal or psychotic at this time, but does appear to be emotionally distraught. Amrit Jacob MD/ PhD
[2018-01-17] MEDS: Pantoprazole 40 mg EC Tab PO SCH (06:53)
[2018-01-17] MEDS: Lactobacillus Acidophilus 500 MU Cap PO SCH ×2 (07:32→17:32)
[2018-01-17] MEDS: Multivitamin Therapeutic Tab PO SCH (07:34)
--- NOTE | 2018-01-17 09:07 | PCM.PYCHPN ---
Psychiatric Progress Note - Psychiatric Progress Note Patient seen today, length of contact: 30 minutes Patient Chief Complaint: "I feel better" Problems Identified/Issues Discussed: Suicide/ homicide prevention, past psychiatric h/o, current psychiatric symptoms, medical problems, risk/benefits and alternatives of medications, medications compliance, coping strategies, substance abuse h/o, relapse prevention, importance of follow up with psychiatrist and therapist, discharge plan. Medical Problems: see HPI Diagnostic Results: Lab Results 01/09/18 07:40: RPR Nonreactive 01/09/18 07:40: Fasting Glucose 120 H, Triglycerides 192 H, Cholesterol 196, LDL Cholesterol Direct 126, HDL Cholesterol 31 01/09/18 07:40: Free T4 0.86, TSH 3rd Generation 0.11 L Vital Signs Temp Pulse Resp BP 01/10/18 09:31 80 129/97 H 01/10/18 07:00 97.9 F 80 22 129/97 H 01/10/18 06:15 80 120/97 H 01/09/18 17:34 49 L 121/82 01/09/18 16:00 49 L 121/82 01/09/18 09:39 77 138/97 H 01/09/18 09:38 77 138/97 H 01/09/18 07:04 97.2 F L 77 20 138/97 H 01/09/18 06:56 77 138/97 H 01/08/18 19:00 97.9 F 61 19 116/80 Temp Pulse Resp BP Pulse Ox 97.8 F 62 22 141/83 01/14/18 06:48 01/14/18 15:40 01/14/18 06:48 01/14/18 15:40 DSM 5 Symptoms Update: shortly patient is 42-year-old female, long history of opioid use disorder, alcohol use disorder, bipolar disorder, patient had few previous admissions to the [facility], patient currently homeless, relapse on herein and alcohol, patient came to the hospital for evaluation of depressive symptoms, possible suicidal ideation with a plan to jump off the bridge, patient required medical admission for electrolytes disbalance, patient was stabilized on the medical side, patient was seen by this policy writer typist as a consult around, patient was medically cleared, patient was transferred to the psychiatric inpatient unit on 01/08/2018 uneventfully. Patient requires further evaluation and stabilization, medications initiate action on titration. Patient was seen at the TV area, pt said "I feel better", pt reported her mood is improving, pt reported that her sleep is "little better", pt reported that she has future oriented plans "to be sober, and get custody over my kids", pt reported she will stay in her ex-boyfriend house. pt's withdrawals are much better. As per staff patient pt is more visible in the unit. So far patient tolerates medications well, no side effects observed or reported, aims 0, no EPS. Impression: As per history bipolar disorder and Opioid use disorder Polysubstance abuse and dependence PTSD Medication Change: Yes (klonopin prn, tramadol prn) Medical Record Reviewed: Yes Consults ordered or reviewed: patient was cleared by medical team pt was seen by medical team again 01/14/18 Mental Status Examination - Cognitive Function Orientation: Person, Place, Situation, Time Memory: Intact Attention: Poor (improving) Concentration: Poor (improving) Association: Loose (improving) Fund of Knowledge: WNL - Mood Mood: Depressed ("I feel better"), Anxious ("I am less anxious") - Affect Affect: Constricted (but more reactive, mood congruent) - Speech Speech: Appropriate - Formal Thought Process Formal Thought Process: No Impairment - Suicidal Ideation Suicidal Ideation: No - Homicidal Ideation Homicidal Ideation: No Goal/Treatment Plan - Goal/Treatment Plan Need for Continued Stay: Remain at risks for inpatient hospitalization, Severe depression anxiety, Discharge may exacerbated symptoms, Severe functional impairment Progress Toward Problem(s) and Goals/Treatment Plan: Milieu/structure/supportive therapy Medical consult appreciated symptomatic treatment for opioid withdrawal's SW consultation for discharge plan and social issues Med management Risperdal d/c seroquel 100mg po amhs for mood stabilization Paxil 40 mg at the nighttime Neurontin 800mg po tid for mood stabilization remeron 45mg po hs Klonopin 1 mg twice a day PRN as needed medications Family involvement Follow up on labs Will monitor closely Pt was educated about risk/benefits and alternatives of medications, coping strategies (safety plan, suicide prevention), relapse prevention, importance of follow up with psychiatrist and therapist, stay away from drugs/alcohol/smoking Estimated Date of D/C: 01/18/18
[2018-01-17] MEDS: Simethicone 80 mg Chewtab PO PRN ×2 (11:33→21:14)
--- NOTE | 2018-01-17 15:38 | PCM.BM ---
<Estela Wall Y - Last Filed: 01/17/18 15:38> Treatment Plan Problems - Problems identified on initial assessmt Hopelessness/Helplessness Date Initiated: 01/09/18 Time Initiated: 03:24 Assessment reference: NA Status: Active Feelings of Worthlessness Date Initiated: 01/09/18 Time Initiated: 03:24 Assessment reference: NA Status: Active Anxiety Related to Substance Use Date Initiated: 01/09/18 Time Initiated: 03:25 Assessment reference: NA Status: Active Ineffective Coping Date Initiated: 01/09/18 Time Initiated: 03:25 Assessment reference: NA Status: Active Treatment assets and liabiliti Patient Assests: adapts well, cooperative, self-reliant, ADL independent, physically healthy, negotiates basic needs, cognitively intact Patient Liabilities: live alone, financial problems, poor support system, relationship conflicts, substance abuse - Milieu Protocol Maintain good personal hygiene: daily Encourage regular showers, daily Remind patient to perform daily oral care, daily Assist patient to perform ADL's Conduct patient checks and document Observation sheet: Q15 minutes Maintain personal safety: every shift Educate patient to report safety concerns to staff, every shift Monitor environment for contraband/sharps Medication safety: Monitor for expected outcome, potential side effects: every shift, Assess barriers to learning: every shift, Assess readiness for medication education: every shift Milieu Narrative: Milieu/structure/supportive therapy Medical consult appreciated symptomatic treatment for opioid withdrawal's SW consultation for discharge plan and social issues Med management Risperdal d/c seroquel 100mg po amhs for mood stabilization Paxil 40 mg at the nighttime Neurontin 800mg po tid for mood stabilization remeron 45mg po hs Klonopin 1 mg twice a day PRN as needed medications Family involvement Follow up on labs Will monitor closely Pt was educated about risk/benefits and alternatives of medications, coping strategies (safety plan, suicide prevention), relapse prevention, importance of follow up with psychiatrist and therapist, stay away from drugs/alcohol/smoking Family Contact Family involvement: Famliy/SO not involved - Goals for Treatment Patient goals for treatment: "I want to find a therapist...I think I need that." Discharge/Continuing Care - Education Needs Education Needs: Patient Medication, Patient Diagnosis/Disease Process, Patient Coping Skills, Patient Community resources, Patient Activities of Daily Living, Patient Nutrition, Patient Health Practices/Safety, Patient Aftercare Safety Plan - Discharge Discharge Criteria: Tolerates medication w/o severe side effects, Free of Suicidal thoughts, Normal sleep pattern, Ability to care for self, No longer exhibiting s/s of withdrawal, Reduction of target symptoms - Treatment Team Participation Patient/Family/SO Statement: Milieu/structure/supportive therapy Medical consult appreciated symptomatic treatment for opioid withdrawal's SW consultation for discharge plan and social issues Med management Risperdal d/c seroquel 100mg po amhs for mood stabilization Paxil 40 mg at the nighttime Neurontin 800mg po tid for mood stabilization remeron 45mg po hs Klonopin 1 mg twice a day PRN as needed medications Family involvement Follow up on labs Will monitor closely Pt was educated about risk/benefits and alternatives of medications, coping strategies (safety plan, suicide prevention), relapse prevention, importance of follow up with psychiatrist and therapist, stay away from drugs/alcohol/smoking Treatment Plan Review - Problem Hopelessness/Helplessness Time Initiated: 03:24 Feelings of Worthlessness Time Initiated: 03:24 Anxiety Related to Substance Use Time Initiated: 03:25 Ineffective Coping Time Initiated: 03:25 <Angelina Cook - Last Filed: 01/18/18 16:39> - Diagnosis (1) Bipolar disorder Status: Acute Interventions: 01/18/18 16:36 reported much improvement with her symptoms Depression is much better Patient has future oriented plans, denied any intent or plan to kill herself Patient tolerates medications well, no side effects observed or reported patient reached maximum affair from this hospitalization CBT as outpatient [facility] program as outpatient (2) Polysubstance abuse Status: Acute Interventions: 01/18/18 16:37 withdrawals are much better Patient was referred to dual diagnosis programs Patient wants to maintain sobriety Naltrexone is not indicated at this time because patient was using methadone and hearing prior to this admission and that this less than 14 days since the last use
[2018-01-18] MEDS: Pantoprazole 40 mg EC Tab PO SCH (06:57)
[2018-01-18] MEDS: Lactobacillus Acidophilus 500 MU Cap PO SCH (07:00)
[2018-01-18] MEDS: Multivitamin Therapeutic Tab PO SCH (07:01)
[2018-01-18 07:35] VITALS: BP 133/87; PULSE 99; TEMP 97.6
--- NOTE | 2018-01-18 16:46 | PCM.PYCHDC ---
Mental Status Examination - Mental Status Examination Orientation: Person, Place, Situation, Time Memory: Intact Mood: Neutral Affect: Broad (and mood congruent) Speech: Appropriate Attention: WNL Concentration: WNL Association: WNL Fund of Knowledge: WNL Formal Thought Process: No Impairment Description of patient's judgement and insight: Pt has improved insight into mental and medical illness, pt was compliant with medications and unit rules and regulations, pt was going to groups, was calm, cooperative, socially appropriate, no behavioral incidents, no agitation, no aggression. Psychotic Thoughts and Behaviors: Pt denied v/a/t hallucinations, denied paranoid ideations, pt does not appear to be psychotic, and thought process is goal directed. Suicidal Ideation: No Current Homicidal Ideation?: No Plan: pt adamantly denied thoughts of harming self or others denied intent or plan. Discharge Summary - Discharge Note Reason for Hospitalization: gavin was admitted to the psychiatric inpatient unit for evaluation and stabilization of depressive symptoms, possible suicidal ideation, medication management, opioid withdrawals. Psychiatric History (includes Medical, Family, Personal Hx): see HPI Laboratory Data: 01/14/18 11:00 01/14/18 11:00 Lab Results 01/15/18 19:11: Troponin I < 0.01 01/14/18 11:00: Sodium 138, Potassium 4.0, Chloride 104, Carbon Dioxide 25, Anion Gap 14, BUN 11, Creatinine 0.6 L, Est GFR ( Amer) > 60, Est GFR (Non-Af Amer) > 60, Random Glucose 143 H, Calcium 9.1, Phosphorus 3.0, Magnesium 2.0, Total Bilirubin 0.5, AST 27, ALT 51, Alkaline Phosphatase 77, Total Protein 7.8, Albumin 4.3, Globulin 3.5, Albumin/Globulin Ratio 1.2 01/14/18 11:00: WBC 8.9 D, RBC 4.94, Hgb 14.9, Hct 42.1, MCV 85.2, MCH 30.2, MCHC 35.4, RDW 12.7, Plt Count 206, MPV 10.5, Gran % 87.1 H, Lymph % (Auto) 10.2 L, [place] % (Auto) 2.6, Eos % (Auto) 0.0 L, Baso % (Auto) 0.1, Gran # 7.77 H, Lymph # (Auto) 0.9 L, [place] # (Auto) 0.2, Eos # (Auto) 0.0, Baso # (Auto) 0.01 01/14/18 05:00: Urine Color Yellow, Urine Appearance Cloudy, Urine pH 8.5, Ur Specific [place] 1.015, Urine Protein Negative, Urine Glucose (UA) Negative, Urine Ketones Negative, Urine Blood Negative, Urine Nitrate Negative, Urine Bilirubin Negative, Urine Urobilinogen 0.2, Ur Leukocyte Esterase Trace H, Urine RBC 0 - 2, Urine WBC 1 - 3, Ur Epithelial Cells 4 - 5, Amorphous Sediment Moderate, Urine Bacteria Few 01/09/18 07:40: RPR Nonreactive 01/09/18 07:40: Fasting Glucose 120 H, Triglycerides 192 H, Cholesterol 196, LDL Cholesterol Direct 126, HDL Cholesterol 31 01/09/18 07:40: Free T4 0.86, TSH 3rd Generation 0.11 L Vital Signs Temp Pulse Resp BP 01/18/18 07:34 97.6 F 99 H 20 133/87 01/17/18 07:34 64 110/69 01/17/18 07:28 98.1 F 64 20 110/69 01/16/18 16:00 76 117/80 01/16/18 07:17 65 147/100 H 01/16/18 07:00 98.0 F 65 20 147/100 H 01/15/18 21:11 71 150/100 H 01/15/18 18:30 156/106 H 01/15/18 16:00 69 156/98 H 01/15/18 08:16 70 166/101 H 01/15/18 07:36 98.0 F 70 20 166/101 H 01/14/18 15:40 62 141/83 01/14/18 07:00 57 L 165/88 H 01/14/18 06:48 97.8 F 57 L 22 165/88 H 01/14/18 04:03 58 L 171/91 H 01/14/18 02:15 63 166/92 H 01/13/18 16:00 60 103/69 01/13/18 07:08 97.7 F 76 20 120/78 01/12/18 21:07 69 110/80 01/12/18 16:00 67 124/77 01/12/18 07:38 97.6 F 88 20 119/86 01/12/18 06:00 88 119/86 01/11/18 22:13 68 115/66 01/11/18 16:02 76 139/87 01/11/18 08:42 61 122/86 01/11/18 07:06 97.8 F 61 20 120/86 01/10/18 15:00 51 L 115/81 01/10/18 09:31 80 129/97 H 01/10/18 07:00 97.9 F 80 22 129/97 H 01/10/18 06:15 80 120/97 H 01/09/18 17:34 49 L 121/82 01/09/18 16:00 49 L 121/82 01/09/18 09:39 77 138/97 H 01/09/18 09:38 77 138/97 H 01/09/18 07:04 97.2 F L 77 20 138/97 H 01/09/18 06:56 77 138/97 H 01/08/18 19:00 97.9 F 61 19 116/80 Consultations:: List each consultation separately and include: 1. Reason for request. 2. Findings. 3. Follow-up Consultations: patient was cleared by medical team pt was seen by medical team again 01/14/18 see notes for more detailed information Summary of Hospital Course include:: 1. Description of specific treatment plan utilized for patients during their course of treatmen. 2. Summarize the time- course for resolution of acute symptoms and/or regressed behaviors. 3. Describe issues identified and worked on during hospitalization. 4. Describe medication utilized. 5. Describe medical problems identified and treated. 6. Reassessment of suicide risk Summary of Hospital Course: shortly patient is 42-year-old female, long history of opioid use disorder, alcohol use disorder, bipolar disorder, patient had few previous admissions to the [facility], patient currently homeless, relapse on herein and alcohol, patient came to the hospital for evaluation of depressive symptoms, possible suicidal ideation with a plan to jump off the bridge, patient required medical admission for electrolytes disbalance, patient was stabilized on the medical side, patient was seen by this database report writer as a consult around, patient was medically cleared, patient was transferred to the psychiatric inpatient unit on 01/08/2018 uneventfully. Patient requires further evaluation and stabilization, medications initiate action on titration. at the time of admission patient presented to be depressed, anxious, had withdrawal symptoms from opioids. Please see notes for more detailed information Lab Results 01/09/18 07:40: Fasting Glucose 120 H, Triglycerides 192 H, Cholesterol 196, LDL Cholesterol Direct 126, HDL Cholesterol 31 01/09/18 07:40: Free T4 0.86, TSH 3rd Generation 0.11 L Vital Signs Temp Pulse Resp BP 01/09/18 09:39 77 138/97 H 01/09/18 09:38 77 138/97 H 01/09/18 07:04 97.2 F L 77 20 138/97 H 01/09/18 06:56 77 138/97 H 01/08/18 19:00 97.9 F 61 19 116/80 Over the course of this hospitalization patient was stabilized on the following medications: Risperdal was discontinued because patient had restless legs on that medication seroquel 100mg po amhs for mood stabilization Paxil 40 mg at the nighttime Neurontin 800mg po tid for mood stabilization remeron 45mg po hs Klonopin 1 mg twice a day PRN Patient tolerated medications well, no side effects observed or reported, aims 0, no EPS, Patient was compliant with the medications, pulse and regulations of this unit. Patient reached maximum effect from this hospitalization, became less depressed, more hopeful, no suicidal or homicidal ideations identified or reported, patient was visible in the unit, had therapeutic milieu. Patient had future oriented plans "I want my kids back, I want to fight for my parental rights and legal custody". At the time of the discharge pt denied been depressed, denied thoughts of harming self or others, denied psychotic symptoms, and pt does not appeared to be psychotic, denied been anxious, pt is not in imminent danger to self or others, pt was referred to the [facility] , information about follow up appointment, time and address provided to the pt, it is patient responsibility to follow up with outpatient clinic, PMD as well as specialists (see note for more detailed information). In case pt will need to obtain results of studies pending at discharge pt was provided with contact information of Psychiatric Inpatient unit [phone] as well as Medical Record Department [phone]. Naltrexone treatment not indicated at this time. Counseling about smoking and alcohol cessation provided AA meetings as well as smoking cessation treatment program information was provided by the pt was provided with prescriptions for all of medications (please see medication reconciliation form) Pt was educated about safety plan in case of worsening of symptoms or in case of suicidal or homicidal ideation call 911 or go to the nearest ER, also was educated to take meds as prescribed and stay away from drugs, pt verbalized understanding. - Diagnosis (1) Bipolar disorder Status: Acute (2) Polysubstance abuse Status: Acute - Final Diagnosis (DSM 5) Condition upon Discharge: GOOD Disposition: HOME/ ROUTINE Follow-up Treatment Plan: At the time of the discharge pt denied been depressed, denied thoughts of harming self or others, denied psychotic symptoms, and pt does not appeared to be psychotic, denied been anxious, pt is not in imminent danger to self or others, pt was referred to the [facility] , information about follow up appointment, time and address provided to the pt, it is patient responsibility to follow up with outpatient clinic, PMD as well as specialists (see note for more detailed information). In case pt will need to obtain results of studies pending at discharge pt was provided with contact information of Psychiatric Inpatient unit [phone] as well as Medical Record Department [phone]. Naltrexone treatment not indicated at this time. Counseling about smoking and alcohol cessation provided AA meetings as well as smoking cessation treatment program information was provided by the pt was provided with prescriptions for all of medications (please see medication reconciliation form) Pt was educated about safety plan in case of worsening of symptoms or in case of suicidal or homicidal ideation call 911 or go to the nearest ER, also was educated to take meds as prescribed and stay away from drugs, pt verbalized understanding. Prescriptions/Medication Reconciliation: clonazePAM [Klonopin] 1 mg PO BID PRN #30 tab PRN Reason: Anxiety Cyanocobalamin [Vitamin B12 100 mcg Tab] 100 mcg PO DAILY #7 tab Dicyclomine [Bentyl] 10 mg PO BID PRN #14 cap PRN Reason: Gi Distress Folic Acid 1 mg PO DAILY #14 tab Gabapentin [Neurontin] 800 mg PO TID #45 tab hydrOXYzine Pamoate [Vistaril] 50 mg PO BID PRN #30 cap PRN Reason: Anxiety Lactobacillus Acidophilus [Bacid Acidophilus] 1 cap PO BID #14 cap Lisinopril [Zestril] 10 mg PO DAILY #7 tab Mirtazapine [Remeron Soltab] 45 mg PO HS #14 odt Multivitamin Therapeutic Tab [Thera Tab] 1 tab PO 0800 #14 tab Nicotine 14 mg/24 hr [Nicoderm CQ] 1 patch TD DAILY #14 patch Pantoprazole [Protonix EC Tab] 40 mg PO 0600 #7 ect Paroxetine HCl [Paxil] 40 mg PO HS #14 tablet QUEtiapine [Seroquel] 100 mg PO AMHS #30 tab Simethicone [Mylicon Chew Tab] 80 mg PO PCHS PRN #7 chew PRN Reason: Gi Distress - Smoking Cessation Smoking Cessation Medication prescribed: Yes - Antipsychotic Medications Pt discharged on 2 or more routine antipsychotic medications: No
== END 2018-01-18 08:44 | disposition home or self-care (01) | DRG 430 ==
LOC: PSYC 18:23
PROVIDERS: ADMIT Psychiatry & Neurology Psychiatry; ATTEND Psychiatry & Neurology Psychiatry
DX: F31.9 Bipolar disorder, unspecified (principal); F11.23 Opioid dependence with withdrawal; F43.10 Post-traumatic stress disorder, unspecified; G47.00 Insomnia, unspecified; J45.909 Unspecified asthma, uncomplicated; I10 Essential (primary) hypertension; F17.210 Nicotine dependence, cigarettes, uncomplicated; Z87.440 Personal history of urinary (tract) infections; Z88.5 Allergy status to narcotic agent